=== PATIENT | female | born 1955 | race Caucasian/White ===

== ENCOUNTER → 2017-07-23 11:29 | Outpatient (CLI) | payer OTHER, SELFPAY ==
[2017-07-23 14:20] LABS: Absolute Lymphocyte Count 1.68 X10^3/ul (0.83-4.51); Absolute Neutrophil Count 3.4 X10^3/uL (2.0-7.7); Basophil# 0.02 X10^3/uL; Basophil% 0.4 % (0-1); Eosinophil# 0.05 X10^3/uL; Eosinophils% 0.9 % (0-5); Erythrocyte Sedimentation Rate 29 mm/hr (0-30); Hematocrit 38.9 % (37-47); Hemoglobin 13.4 g/dl (12.0-15.0); Lymphocyte # 1.68 X10^3/ul (4.0); Lymphocyte % 30.2 % (19-41); Mean Corp Hgb Conc 34.4 g/gl (32-36); Mean Platelet Vol. 10.9 fl (6.2-12.0); Monocyte# 0.38 X10^3/uL; Monocyte% 6.8 % (0-10); Neutrophil # 3.43 X10^3/uL (2.7-7.7); Neutrophil % 61.5 % (47-70); Platelet Count 238 K/mm3 (150-450); RBC Distribution Width CV 13.2 % (11.6-14.6); RBC Distribution Width SD 40.8 fl (35.1-43.9); Red Blood Count 4.47 M/mm3 (4.2-5.4); White Blood Count 5.6 K/mm3 (4.4-11.0)
[2017-07-23 14:22] LABS: POSITIVE COUNT NO; POSITIVE DIFFERENTIAL NO; POSITIVE MORPHOLOGY NO
[2017-07-23 14:45] LABS: AST(SGOT) 26 U/L (15-37); Alanine Aminotransfer ALT/SGPT 31 U/L (13-56); Albumin, Serum 3.8 g/dL (3.2-5.0); Alkaline Phosphatase 108 U/L (45-117); Anion Gap 11 (5-15); BUN 14 mg/dL (7-18); CRP 8.77 mg/L (0.0-3.0); Calcium,Total 8.9 mg/dL (8.5-10.1); Chloride 109 mmol/L (98-107); Creatinine, Serum 0.87 mg/dL (0.55-1.02); EST Glomerular Filtration Rate 70 mL/min (>60); Est Glom Filt Rate - Afr Amer 85 mL/min (>60); Glucose 108 mg/dL (74-106); Magnesium 1.9 mg/dL (1.6-2.6); Potassium 3.7 mmol/L (3.5-5.1); Protein, Total 7.8 g/dL (6.4-8.2); Sodium Level 143 mmol/L (136-145); Thyroid Stim Hormone (TSH) 1.42 uIU/mL (0.358-3.74)
== END ==
PROVIDERS: Family Provider Family Medicine; PCP Family Medicine; Visit Provider Family Medicine
DX: G43.809 Other migraine, not intractable, without status migrainosus (principal); R00.0 Tachycardia, unspecified
CPT/HCPCS: 36415; 80053; 83735; 84443; 85025; 85652; 86140

== ENCOUNTER 2018-06-23 08:18 | Observation (INO) | payer OTHER, SELFPAY ==
[2018-06-23] VITALS (10 sets, daily range): BP systolic 133–152; BP diastolic 80–90; PULSE 82–112; RESP 14–20; TEMP 36.6–36.7; O2SAT 95–100; BMI 38.0; BMI 38.1; BMI 38.2
--- NOTE | 2018-06-23 08:28 | EKG12_ITS ---
Test Reason : CP ADMISSION Blood Pressure : / mmHG Vent. Rate : 086 BPM Atrial Rate : 086 BPM P-R Int : 154 ms QRS Dur : 086 ms QT Int : 352 ms P-R-T Axes : 038 023 016 degrees QTc Int : 421 ms Normal sinus rhythm Normal ECG Confirmed by AXEL KHAN, DEANA ([id number]), field map editor JEF DOE ([id number]) on 06/24/2018 1:26:51 PM Referred By: MIGUEL Confirmed By:DEANA REYNA MD
[2018-06-23] MEDS: Aspirin 81 MG TAB.CHEW 324 MG PO (08:32)
--- NOTE | 2018-06-23 08:33 | ED.DCSUM_ITS ---
- ER Visit Summary Date of Service: 06/23/18 Chief Complaint: Chest pain History of Present Illness: The patient is a 62 F with chest pain that started yesterday. She has episodes that last a few seconds and are sharp and stabbing she does have some radiation to her left arm. She also has had some tenderness in her left groin region for about 3 days currently she has no pain. She has no dysuria. She has no flank pain or back pain. This chest pain is not associated with any upper back pain or tearing sensation. She has no PE risk factors. Pain is nonpleuritic. She has no leg pain or calf swelling. Physical Examination: Not appear in acute distress. Moist mucous membranes, no obvious facial deformity No C-spine tenderness supple neck. Regular rate and rhythm without any obvious murmurs Clear lungs bilaterally speaking in full sentences without any obvious respiratory distress Abdomen soft and nontender no guarding or rebound. Palpating in her inguinal region or her pain was but currently she has no pain. It was not in her abdomen or pelvic region. Moves all extremities without any difficulty or pain. Skin does not show any obvious rashes or lesions, no trauma. Alert oriented ?3 with no gross focal deficit Emergency Department Course and Treatment: She remained asymptomatic in the emergency department. Her heart score is a 4. Because of this she will need to be admitted for cardiac workup. She has no PE risk factors. She appears well otherwise. Disposition: Admit in stable condition for observation Impression: Chest pain This note was generated with [employer] dictation software. It may contain incorrect words, spelling, and punctuation that were not noted in review of the chart prior to signing ED Disposition - Plan for ED Patient: Referrals: Mason Lagunas MD [Primary Care Provider] -
--- NOTE | 2018-06-23 08:41 | RAD_ITS ---
STUDY: X-RAY CHEST REASON FOR EXAM: Female, 62 years old. Chest pain. TECHNIQUE: Single AP portable view of the chest. COMPARISON: Comparison is made with prior study dated June 20, 2013. FINDINGS: EKG electrodes are seen. Soft tissue density in the medial aspect of the right lung apex. This may represent vascular ectasia. There is no demonstrated pleural abnormality. Normal size heart. Normal mediastinum and levon. Normal visualized pulmonary arteries. There is atherosclerotic tortuosity of the aortic arch and descending thoracic aorta. There are diffuse degenerative changes of the visualized thoracic spine. Normal visualized ribs, clavicles, and shoulders. There is no demonstrated abnormality of the visualized soft tissue structures of the upper abdomen. RAD/Chest 1 View (Portable) IMPRESSION: No acute abnormality is seen. Electronically Signed: Alex Barber, at 9:03 EDT , Service support ,
[2018-06-23 08:49] LABS: Absolute Lymphocyte Count 1.16 X10^3/ul (0.83-4.51); Absolute Neutrophil Count 6.8 X10^3/uL (2.0-7.7); Basophil# 0.01 X10^3/uL; Basophil% 0.1 % (0-1); Eosinophil# 0.04 X10^3/uL; Eosinophils% 0.5 % (0-5); Hematocrit 40.8 % (37-47); Hemoglobin 13.8 g/dl (12.0-15.0); Lymphocyte # 1.16 X10^3/ul (4.0); Lymphocyte % 13.8 % (19-41); Mean Corp Hgb Conc 33.8 g/gl (32-36); Mean Corpuscular Hgb 29.4 pg (27.0-32.0); Mean Corpuscular Volume 86.8 fL (81-99); Mean Platelet Vol. 9.3 fl (6.2-12.0); Monocyte# 0.43 X10^3/uL; Monocyte% 5.1 % (0-10); Neutrophil # 6.77 X10^3/uL (2.7-7.7); Neutrophil % 80.4 % (47-70); Platelet Count 236 K/mm3 (150-450); RBC Distribution Width CV 12.8 % (11.6-14.6); RBC Distribution Width SD 41.2 fl (35.1-43.9); White Blood Count 8.4 K/mm3 (4.4-11.0)
[2018-06-23 08:50] LABS: POSITIVE COUNT NO; POSITIVE DIFFERENTIAL NO; POSITIVE MORPHOLOGY NO
[2018-06-23 09:06] LABS: Anion Gap 7 (5-15); BUN 19 mg/dL (7-18); BUN/Creat Ratio 17.6 RATIO (10-20); Calcium,Total 9.4 mg/dL (8.5-10.1); Chloride 110 mmol/L (98-107); Creatinine, Serum 1.08 mg/dL (0.55-1.02); EST Glomerular Filtration Rate 55 mL/min (>60); Est Glom Filt Rate - Afr Amer 66 mL/min (>60); Estimated Creatinine Clearance 41.28 ml/min; Glucose 164 mg/dL (74-106); Potassium 3.8 mmol/L (3.5-5.1); Sodium Level 142 mmol/L (136-145)
[2018-06-23 09:15] LABS: Bacteria 0 SEEN /hpf (None Seen); Mucous, Urine 0 SEEN /hpf (<or=2+); Red Blood Cells-Urine 0 SEEN /hpf (0-5); White Blood Cells 0 SEEN /hpf (0-5)
[2018-06-23 09:17] LABS: Color, Urine Yellow (Yellow); Glucose, Dipstick Normal (Normal); Ketone-Dipstick Negative (Negative); Leukocyte Esterase-Dipstick Negative /ul (Negative); Nitrite-Dipstick Negative (Negative); Occult Blood-Urine Negative /ul (Negative); Protein-Dipstick Negative (Negative); Urine Bilirubin Dipstick Negative (Negative); Urine Clarity Sl. Cloudy (Clear); Urine Urobilinogen Normal (Normal)
[2018-06-23 09:30] LABS: Squamous Epithelial Cells - UA 0-5 SEEN /hpf (5-10)
--- NOTE | 2018-06-23 10:29 | EKG12_ITS ---
Test Reason : CP Blood Pressure : / mmHG Vent. Rate : 101 BPM Atrial Rate : 101 BPM P-R Int : 144 ms QRS Dur : 086 ms QT Int : 344 ms P-R-T Axes : 039 009 037 degrees QTc Int : 446 ms Sinus tachycardia Otherwise normal ECG Confirmed by NEHAL KHAN, YANA ([id number]), international editorial producer GILBERT WOOD ([id number]) on 06/29/2018 4:11:52 PM Referred By: ALMA Confirmed By:YANA CALVERT MD
--- NOTE | 2018-06-23 11:18 | PCM.HP.STD ---
History of Present Illness Date of Admission: 06/23/18 Chief Complaint: chest pain The patient is a 62 year old F with past medical history of hypertension hyperlipidemia. She was admitted through the ED on 06/23/2018 with a complaint of chest pain of one days duration. She said pain was left-sided, pressure-like, and assisted with tingling in her left fingers. She states it started when she was having a breast exam done. It was episodic and she had no assisted lightheadedness or dizziness. He also denied any shortness of breath or palpitations. She is never had chest pain like this in the past. In the ED, initial troponin was negative and EKG showed sinus tachycardia but no acute ST changes. She has been admitted to be managed for chest pain to rule out ACS. [] Past Medical History Past Medical History (Chronic Problems): Chronic Problems Obese (Chronic) HTN (hypertension) (Chronic) Secondhand exposure to smoking (Chronic) Allergies meloxicam Adverse Reaction (Verified 06/23/18 08:19) Diarrhea Home Medications: Ambulatory Orders Medication Instructions Recorded Atorvastatin Calcium [Lipitor] 20 mg PO QHS #30 tablet 06/21/13 Butterbur Root Extract [Petadolex] 50 mg PO BID 06/23/18 Cholecalciferol (VIT D3) [Vitamin 3,000 unit PO DAILY 06/23/18 D] Metoprolol Succinate 50 mg PO DAILY 06/23/18 Spironolactone 50 mg PO DINNER 06/23/18 Topiramate [Topamax] 25 mg PO BID 06/23/18 Surgical History: noncontributory Psychiatric History: No pertinent psych hx AUTHOR AGENT 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 Denies: Palpitations Respiratory: Denies: Cough, Shortness of Breath, Shortness of breath at rest, Shortness of breath upon exertion, Sputum production Gastrointestinal: Denies: Abdominal Pain, Nausea, Vomiting Genitourinary: Denies: Dysuria Musculoskeletal: Denies: Joint Pain, Joint Tenderness Skin: Denies: Rash, Wounds Neurological: Denies: Numbness, Tingling, Focal weakness Psychiatric: Denies: Anxiety, Depression, Homicidal Ideations, Suicidal Ideations Hematologic/ Lymphatic: Denies: Easy Bruising, Easy Bleeding VTE Information - Inpt Only VTE Present on Admission: No VTE Pharm Prophylaxis ordered?: Yes - Physical Exam General: Alert, Oriented x3, Cooperative, No apparent distress HEENT: Atraumatic, PERRLA, EOMI, Normocephalic Oral: Moist Mucosa Neck: Supple, No JVD, Negative Carotid Bruits Lungs: Clear to auscultation, Normal air movement Cardiovascular: Regular rate, Regular Rhythm, Normal S1, Normal S2, No murmurs Abdomen: Bowel Sounds Present, Soft, Non Tender, Non-Distended, No Hepato-splenomegaly Extremities: No clubbing, No cyanosis, No edema, Capillary Refill Less than 3 Seconds Skin: No rashes, No breakdown Musculoskeletal: No Tenderness to Palpation of Joints or Extremities Lymphatic: No Cervical, Supraclavicular, or Inguinal Adenopathy Neurological: Cranial nerves II-XII grossly intact, Neuro grossly intact, Motor Exam 5/5 strength throughout Psych/Mental Status: Normal Affect, Appropriate, Alert and oriented to time, place, person, mood and affect Vital Signs Temp Pulse Resp BP Pulse Ox 98.0 F 93 14 145/84 H 97 06/23/18 10:15 06/23/18 10:31 06/23/18 10:15 06/23/18 10:15 06/23/18 10:15 Oxygen Flow Rate (L/min) 1 Oxygen Delivery Method Room Air Weight: 201 lb 15.095 oz Body Mass Index (BMI) 38.1 Finger Stick Blood Glucose 114 Laboratory Tests Past 24 Hrs 06/23/18 06/23/18 06/23/18 08:40 08:40 09:09 WBC 8.4 RBC 4.70 Hgb 13.8 Hct 40.8 MCV 86.8 MCH 29.4 MCHC 33.8 RDW 12.8 RDW Differential 41.2 Plt Count 236 MPV 9.3 Immature Gran % (Auto) 0.100 Neut % (Auto) 80.4 H Lymph % (Auto) 13.8 L [place] % (Auto) 5.1 Eos % (Auto) 0.5 Baso % (Auto) 0.1 Absolute Neuts (auto) 6.8 Absolute Lymphs (auto) 1.16 Total Counted Not Reportable Sodium 142 Potassium 3.8 Chloride 110 H Carbon Dioxide 25.0 Anion Gap 7 BUN 19 H Creatinine 1.08 H Estim Creat Clear Calc 41.28 Est GFR (MDRD) Af Amer 66 Est GFR (MDRD) Non-Af 55 L BUN/Creatinine Ratio 17.6 Glucose 164 H Calcium 9.4 Troponin I < 0.015 Urine Color Yellow Urine Clarity Sl. Cloudy Urine pH 7.0 Ur Specific [place] 1.010 Urine Protein Negative Urine Glucose (UA) Normal Urine Ketones Negative Urine Occult Blood Negative Urine Nitrite Negative Urine Bilirubin Negative Urine Urobilinogen Normal Ur Leukocyte Esterase Negative Urine RBC 0 SEEN Urine WBC 0 SEEN Ur Squamous Epith Cells 0-5 SEEN Urine Bacteria 0 SEEN Urine Mucus 0 SEEN Diagnostic Data Chest X-Ray 06/23/18 08:41 IMPRESSION: No acute abnormality is seen. Electronically Signed: Alex Barber, at 9:03 EDT , Service support , Assessment/Plan 62 y/o admitted with a complaint of chest pain 1. Chest pain to r/o ACS initial troponin was negative; EKG showed no acute ST change admit to PCU with telemetry cycle troponins give SL nitroglycerin prn; PO aspirin 81mg daily check lipid panel for stress test tomorrow if troponins are negative. 2. Hyperlipidemia: on statin 3. Hypertension: controlled. On metoprolol 50mg daily and spironolactone 50mg daily. DVT prophylaxis: lovenox Code Visit OBSV E&M: 10520 Initial observation care L3
--- NOTE | 2018-06-23 11:26 | HP.PCM_ITS ---
History of Present Illness Date of Admission: 06/23/18 Chief Complaint: chest pain The patient is a 62 year old F with past medical history of hypertension hyperlipidemia. She was admitted through the ED on 06/23/2018 with a complaint of chest pain of one days duration. She said pain was left-sided, pressure-like, and assisted with tingling in her left fingers. She states it started when she was having a breast exam done. It was episodic and she had no assisted lightheadedness or dizziness. He also denied any shortness of breath or palpitations. She is never had chest pain like this in the past. In the ED, initial troponin was negative and EKG showed sinus tachycardia but no acute ST changes. She has been admitted to be managed for chest pain to rule out ACS. [] Past Medical History Past Medical History (Chronic Problems): Chronic Problems Obese (Chronic) HTN (hypertension) (Chronic) Secondhand exposure to smoking (Chronic) Allergies meloxicam Adverse Reaction (Verified 06/23/18 08:19) Diarrhea Home Medications: Ambulatory Orders Medication Instructions Recorded Atorvastatin Calcium [Lipitor] 20 mg PO QHS #30 tablet 06/21/13 Butterbur Root Extract [Petadolex] 50 mg PO BID 06/23/18 Cholecalciferol (VIT D3) [Vitamin 3,000 unit PO DAILY 06/23/18 D] Metoprolol Succinate 50 mg PO DAILY 06/23/18 Spironolactone 50 mg PO DINNER 06/23/18 Topiramate [Topamax] 25 mg PO BID 06/23/18 Surgical History: noncontributory Psychiatric History: No pertinent psych hx PRUNER History: No pertinent PRUNER history Lives: Spouse/ Significant Other Smoking Status: Never smoker Alcohol: None Drugs: None - *Family History Paternal History Items: Heart Disease - father of a heart attack in his 40s, - Sibling History Items: - - brother has sarcoidosis Review of Systems Constitutional: Denies: Chills, Fever, Malaise, Weakness, Weight Change Eyes: Denies: Blurred vision HEENT: Denies: Head Aches, Sinus Congestion, Sinus Drainage Cardiovascular: Reports: Chest Pain. Denies: Palpitations Respiratory: Denies: Cough, Shortness of Breath, Shortness of breath at rest, Shortness of breath upon exertion, Sputum production Gastrointestinal: Denies: Abdominal Pain, Nausea, Vomiting Genitourinary: Denies: Dysuria Musculoskeletal: Denies: Joint Pain, Joint Tenderness Skin: Denies: Rash, Wounds Neurological: Denies: Numbness, Tingling, Focal weakness Psychiatric: Denies: Anxiety, Depression, Homicidal Ideations, Suicidal Ideations Hematologic/ Lymphatic: Denies: Easy Bruising, Easy Bleeding VTE Information - Inpt Only VTE Present on Admission: No VTE Pharm Prophylaxis ordered?: Yes - Physical Exam General: Alert, Oriented x3, Cooperative, No apparent distress HEENT: Atraumatic, PERRLA, EOMI, Normocephalic Oral: Moist Mucosa Neck: Supple, No JVD, Negative Carotid Bruits Lungs: Clear to auscultation, Normal air movement Cardiovascular: Regular rate, Regular Rhythm, Normal S1, Normal S2, No murmurs Abdomen: Bowel Sounds Present, Soft, Non Tender, Non-Distended, No Hepato- splenomegaly Extremities: No clubbing, No cyanosis, No edema, Capillary Refill Less than 3 Seconds Skin: No rashes, No breakdown Musculoskeletal: No Tenderness to Palpation of Joints or Extremities Lymphatic: No Cervical, Supraclavicular, or Inguinal Adenopathy Neurological: Cranial nerves II-XII grossly intact, Neuro grossly intact, Motor Exam 5/5 strength throughout Psych/Mental Status: Normal Affect, Appropriate, Alert and oriented to time, place, person, mood and affect Vital Signs Temp Pulse Resp BP Pulse Ox 98.0 F 93 14 145/84 H 97 06/23/18 10:15 06/23/18 10:31 06/23/18 10:15 06/23/18 10:15 06/23/18 10:15 Oxygen Flow Rate (L/min) 1 Oxygen Delivery Method Room Air Weight: 201 lb 15.095 oz Body Mass Index (BMI) 38.1 Finger Stick Blood Glucose 114 Laboratory Tests Past 24 Hrs 06/23/18 06/23/18 06/23/18 08:40 08:40 09:09 WBC 8.4 RBC 4.70 Hgb 13.8 Hct 40.8 MCV 86.8 MCH 29.4 MCHC 33.8 RDW 12.8 RDW Differential 41.2 Plt Count 236 MPV 9.3 Immature Gran % (Auto) 0.100 Neut % (Auto) 80.4 H Lymph % (Auto) 13.8 L [place] % (Auto) 5.1 Eos % (Auto) 0.5 Baso % (Auto) 0.1 Absolute Neuts (auto) 6.8 Absolute Lymphs (auto) 1.16 Total Counted Not Reportable Sodium 142 Potassium 3.8 Chloride 110 H Carbon Dioxide 25.0 Anion Gap 7 BUN 19 H Creatinine 1.08 H Estim Creat Clear Calc 41.28 Est GFR (MDRD) Af Amer 66 Est GFR (MDRD) Non-Af 55 L BUN/Creatinine Ratio 17.6 Glucose 164 H Calcium 9.4 Troponin I < 0.015 Urine Color Yellow Urine Clarity Sl. Cloudy Urine pH 7.0 Ur Specific [place] 1.010 Urine Protein Negative Urine Glucose (UA) Normal Urine Ketones Negative Urine Occult Blood Negative Urine Nitrite Negative Urine Bilirubin Negative Urine Urobilinogen Normal Ur Leukocyte Esterase Negative Urine RBC 0 SEEN Urine WBC 0 SEEN Ur Squamous Epith Cells 0-5 SEEN Urine Bacteria 0 SEEN Urine Mucus 0 SEEN Diagnostic Data Chest X-Ray 06/23/18 08:41 IMPRESSION: No acute abnormality is seen. Electronically Signed: Alex Barber, at 9:03 EDT , Service support , Assessment/Plan 62 y/o admitted with a complaint of chest pain 1. Chest pain to r/o ACS * initial troponin was negative; EKG showed no acute ST change * admit to PCU with telemetry * cycle troponins * give SL nitroglycerin prn; PO aspirin 81mg daily * check lipid panel * for stress test tomorrow if troponins are negative. * 2. Hyperlipidemia: on statin 3. Hypertension: controlled. On metoprolol 50mg daily and spironolactone 50mg daily. DVT prophylaxis: lovenox Code Visit OBSV E&M: 98077 Initial observation care L3
[2018-06-23 11:31] LABS: Bedside Glucose 95 mg/dL (70-110)
[2018-06-23] MEDS: Topiramate 25 MG Tablet PO ×2 (11:54→22:35)
[2018-06-23 16:41] LABS: Bedside Glucose 91 mg/dL (70-110)
[2018-06-23] MEDS: Spironolactone 50 MG Tablet PO (17:07)
[2018-06-23] MEDS: Atorvastatin Calcium 20 MG Tablet PO (22:35)
[2018-06-24 00:38] VITALS: BP 117/76; PULSE 84; RESP 18; TEMP 36.4; O2SAT 93
[2018-06-24 00:51] LABS: Bedside Glucose 101 mg/dL (70-110)
[2018-06-24 02:57] VITALS: PULSE 74
[2018-06-24 05:37] LABS: International Normalized Ratio 1.1; Prothrombin Time (Protime)PT. 13.9 SECONDS (11.7-14.9)
[2018-06-24 05:38] LABS: Absolute Lymphocyte Count 2.42 X10^3/ul (0.83-4.51); Absolute Neutrophil Count 5.9 X10^3/uL (2.0-7.7); Basophil# 0.02 X10^3/uL; Basophil% 0.2 % (0-1); Eosinophil# 0.11 X10^3/uL; Eosinophils% 1.2 % (0-5); Hematocrit 39.1 % (37-47); Lymphocyte # 2.42 X10^3/ul (4.0); Lymphocyte % 26.8 % (19-41); Mean Corp Hgb Conc 33.2 g/gl (32-36); Mean Corpuscular Volume 87.3 fL (81-99); Mean Platelet Vol. 9.7 fl (6.2-12.0); Monocyte# 0.61 X10^3/uL; Monocyte% 6.7 % (0-10); Neutrophil # 5.88 X10^3/uL (2.7-7.7); Neutrophil % 65.1 % (47-70); Partial Thromboplast Time 29.2 Seconds (24.1-36.2); Platelet Count 249 K/mm3 (150-450); RBC Distribution Width CV 12.9 % (11.6-14.6); RBC Distribution Width SD 40.4 fl (35.1-43.9); Red Blood Count 4.48 M/mm3 (4.2-5.4)
[2018-06-24 05:49] LABS: POSITIVE COUNT NO; POSITIVE DIFFERENTIAL NO; POSITIVE MORPHOLOGY NO
[2018-06-24 05:50] VITALS: BP 140/79; PULSE 84; RESP 18; TEMP 36.7; O2SAT 95
[2018-06-24 05:50] LABS: Anion Gap 8 (5-15); BUN 15 mg/dL (7-18); BUN/Creat Ratio 16.1 RATIO (10-20); Calcium,Total 8.9 mg/dL (8.5-10.1); Chloride 111 mmol/L (98-107); Creatinine, Serum 0.93 mg/dL (0.55-1.02); EST Glomerular Filtration Rate 65 mL/min (>60); Est Glom Filt Rate - Afr Amer 79 mL/min (>60); Estimated Creatinine Clearance 47.94 ml/min; Glucose 103 mg/dL (74-106); Potassium 4.1 mmol/L (3.5-5.1); Sodium Level 142 mmol/L (136-145)
[2018-06-24] MEDS: Aspirin 81 MG TAB.CHEW PO (05:55)
--- NOTE | 2018-06-24 05:55 | EKG12_ITS ---
Test Reason : AM Blood Pressure : / mmHG Vent. Rate : 083 BPM Atrial Rate : 083 BPM P-R Int : 148 ms QRS Dur : 084 ms QT Int : 384 ms P-R-T Axes : 046 013 030 degrees QTc Int : 451 ms Normal sinus rhythm Normal ECG When compared with ECG of 23-JUN-2018 10:43, MANUAL COMPARISON REQUIRED, DATA IS UNCONFIRMED Confirmed by NEHAL KHAN, YANA ([id number]), editor farm journal GILBERT WOOD ([id number] on 06/29/2018 5:17:32 PM Referred By: MEHDI Confirmed By:YANA CALVERT MD
[2018-06-24 06:01] LABS: Bedside Glucose 101 mg/dL (70-110)
--- NOTE | 2018-06-24 08:33 | STRESSREP_ITS ---
Stress Test Report Exercise myocardial perfusion stress test. 62-year-old lady with a history of chest pain. Stress protocol: Resting EKG demonstrates normal sinus rhythm with a rate of 84 bpm normal intervals are noted resting blood pressures 144/88 mmHg. The patient exercised according to the regular [place] protocol for total duration of 6 minutes the m aximum heart rate attained was 148 bpm which was 93% of maximum predicted heart rate the maximum workload was 7 metabolic equivalents. At rest there were no ST or T wave changes noted suggest ischemia at peak exercise upsloping ST changes only were noted with no meet the criteria for ischemia. The resting blood pressure 148/88 with a peak blood pressure 160/80 mmHg. Myocardial perfusion protocol. 14.6 mCi of technetium 99m sestamibi was injected at rest. The patient exercised according to regular [place] protocol for total duration of 6 minutes at peak exercise 43.9 mCi of technetium 99m sestamibi was injected stress images were obtained stress and rest images were reconstructed in comparing the short axis vertical long horizontal long axis. Gated images were also obtained for next Perfusion SPECT analysis: Review of the stress images demonstrate normal uptake of tracer noted in all areas of the myocardium the resting images similarly demonstrate normal uptake of tracer noted in all areas of the myocardium. No areas of reversibility are noted suggest ischemia. Gated SPECT analysis: The gated ejection fraction is noted to be 78%. Conclusion: Normal exercise myocardial perfusion stress test at a moderate workload. Preserved ejection fraction.
[2018-06-24 08:55] VITALS: BP 126/79; PULSE 94; RESP 16; TEMP 36.8; O2SAT 96
[2018-06-24 09:02] VITALS: PULSE 94
[2018-06-24] MEDS: Metoprolol(XL)Succ 50 MG Tablet PO (09:02)
--- NOTE | 2018-06-24 10:47 | DCINST_ITS ---
You will use the following diet at home:: Cardiac Your food should be the consistency of: Regular Your liquids should be the consistency of: Regular/Thin Discharge Activity: Return to Normal Activity Weight Bearing Status: Weight bearing as tolerated Call your doctor if you observe: Shortness of breath, Chest pain Instructions: What Is Angina?, Fast-Acting Nitroglycerin Allergies/Adverse Reactions: Allergies meloxicam Adverse Reaction (Verified 06/23/18 08:19) Diarrhea Medications to take at Discharge Atorvastatin Calcium [Lipitor] 20 mg PO QHS #30 tablet 06/21/13 Butterbur Root Extract [Petadolex] 50 mg PO BID 06/23/18 Cholecalciferol (VIT D3) [Vitamin D3] 3,000 unit PO DAILY 06/23/18 Metoprolol Succinate 50 mg PO DAILY 06/23/18 Spironolactone 50 mg PO DINNER 06/23/18 Topiramate [Topamax] 25 mg PO BID 06/23/18 Aspirin [Aspirin, Baby] 81 mg PO DAILY@0800 #30 tab.chew 06/24/18 Nitroglycerin [Nitrostat] 0.4 mg SUBLINGUAL Q5M PRN #30 tablet 06/24/18 The following prescriptions were given: Aspirin [Aspirin, Baby] 81 mg PO DAILY@0800 #30 tab.chew Nitroglycerin [Nitrostat] 0.4 mg SUBLINGUAL Q5M PRN #30 tablet PRN Reason: Cardiac/Chest Pain Primary Care Physician: Mason Lagunas MD [Primary Care Provider] - Please follow up with your Primary Care Physician in: one week Test Results: Test results from this visit will be discussed in further detail at your follow- up appointment, if applicable. Proposed Discharge Date: 06/24/18
--- NOTE | 2018-06-24 10:47 | PCM.DC.SUM ---
Discharge Date and Diagnosis Date of Admission: 06/23/18 Date of Discharge: 06/24/18 - Primary Discharge Diagnosis chest pain - Secondary Discharge Diagnosis Chronic Problems Obese (Chronic) HTN (hypertension) (Chronic) Secondhand exposure to smoking (Chronic) Hospital Course and Treatment Imaging Results: 06/24/18 05:55 Nuclear Stress Test - Treadmil [NM] AM (NON MEDS) Diagnostic Data Chest X-Ray 06/23/18 08:41 IMPRESSION: No acute abnormality is seen. Electronically Signed: Alex Barber, at 9:03 EDT , Service support , Operations: None Procedures: Cardiac catheterization Summary of Care Provided: The patient is a 62 year old F with past medical history of hypertension hyperlipidemia. She was admitted through the ED on 06/23/2018 with a complaint of chest pain of one days duration. She said pain was left-sided, pressure-like, and assisted with tingling in her left fingers. She states it started when she was having a breast exam done. It was episodic and she had no assisted lightheadedness or dizziness. He also denied any shortness of breath or palpitations. She is never had chest pain like this in the past. In the ED, initial troponin was negative and EKG showed sinus tachycardia but no acute ST changes. She was admitted to be managed for chest pain to rule out ACS. Troponins x3 were negative. She had a stress test on 06/24/2018 which was negative. She remained stable and was discharged home on 06/24/2018. She was given a prescription for p.o. aspirin 81 mg daily and sublingual nitroglycerin as needed. She is follow-up with her PCP in 1 week. Patient seen and examined prior to discharge. She had no complaints and felt well. Chest pain hadnt recurred since admission. Review of systems otherwise negative. Labs and vitals reviewed. Home medications reviewed and reconciled. o/e: Vital Signs Height 5 ft 1 in Weight: 201 lb 15.095 oz Weight in Pounds 201.9 lbs Pulse Ox 96 Temperature 98.3 F Pulse Rate 94 Respiratory Rate 16 Blood Pressure 126/79 Blood Pressure Position Semi-Fowlers General: Alert, Oriented x3, Cooperative, No apparent distress HEENT: Atraumatic, PERRLA, EOMI, Normocephalic Oral: Moist Mucosa Neck: Supple, No JVD, Negative Carotid Bruits Lungs: Clear to auscultation, Normal air movement Cardiovascular: Regular rate, Regular Rhythm, Normal S1, Normal S2, No murmurs Abdomen: Bowel Sounds Present, Soft, Non Tender, Non-Distended, No Hepato-splenomegaly Extremities: No clubbing, No cyanosis, No edema, Capillary Refill Less than 3 Seconds Skin: No rashes, No breakdown Musculoskeletal: No Tenderness to Palpation of Joints or Extremities Lymphatic: No Cervical, Supraclavicular, or Inguinal Adenopathy Neurological: Cranial nerves II-XII grossly intact, Neuro grossly intact, Motor Exam 5/5 strength throughout Psych/Mental Status: Normal Affect, Appropriate, Alert and oriented to time, place, person, mood and affect Plan is to discharge patient home with PO aspirin and SL nitroglycerin. - Physical Exam Vital Signs Temp Pulse Resp BP Pulse Ox 98.3 F 94 16 126/79 H 96 06/24/18 08:55 06/24/18 09:02 06/24/18 08:55 06/24/18 08:55 06/24/18 08:55 Oxygen Flow Rate (L/min) 1 Oxygen Delivery Method Room Air Weight: 201 lb 15.095 oz Body Mass Index (BMI) 38.1 Finger Stick Blood Glucose 114 Intake and Output for Last 24 Hours 06/22/18 06/23/18 06/24/18 23:59 23:59 23:59 Intake Total 1765 / 1765 120 / 120 Balance 1765 / 1765 120 / 120 Laboratory Tests Past 24 Hrs 06/23/18 06/23/18 06/24/18 11:55 14:40 05:18 WBC 9.0 RBC 4.48 Hgb 13.0 Hct 39.1 MCV 87.3 MCH 29.0 MCHC 33.2 RDW 12.9 RDW Differential 40.4 Plt Count 249 MPV 9.7 Immature Gran % (Auto) 0.000 Neut % (Auto) 65.1 Lymph % (Auto) 26.8 [place] % (Auto) 6.7 Eos % (Auto) 1.2 Baso % (Auto) 0.2 Absolute Neuts (auto) 5.9 Absolute Lymphs (auto) 2.42 Total Counted Not Reportable PT INR APTT Sodium Potassium Chloride Carbon Dioxide Anion Gap BUN Creatinine Estim Creat Clear Calc Est GFR (MDRD) Af Amer Est GFR (MDRD) Non-Af BUN/Creatinine Ratio Glucose Calcium Troponin I < 0.015 < 0.015 06/24/18 06/24/18 05:18 05:18 WBC RBC Hgb Hct MCV MCH MCHC RDW RDW Differential Plt Count MPV Immature Gran % (Auto) Neut % (Auto) Lymph % (Auto) [place] % (Auto) Eos % (Auto) Baso % (Auto) Absolute Neuts (auto) Absolute Lymphs (auto) Total Counted PT 13.9 INR 1.1 APTT 29.2 Sodium 142 Potassium 4.1 Chloride 111 H Carbon Dioxide 23.0 Anion Gap 8 BUN 15 Creatinine 0.93 Estim Creat Clear Calc 47.94 Est GFR (MDRD) Af Amer 79 Est GFR (MDRD) Non-Af 65 BUN/Creatinine Ratio 16.1 Glucose 103 Calcium 8.9 Troponin I POC Glucose 06/24/18 06/24/18 06/23/18 05:52 00:40 16:25 POC Glucose 101 101 91 06/23/18 11:26 POC Glucose 95 Discharge Diet: Low fat/ Low Cholesterol Discharge Activity: Return to Normal Activity Weight Bearing Status: Weight bearing as tolerated Call your doctor if you observe: Shortness of breath, Chest pain Home Medications: Medications to take at Discharge Atorvastatin Calcium [Lipitor] 20 mg PO QHS #30 tablet 06/21/13 Butterbur Root Extract [Petadolex] 50 mg PO BID 06/23/18 Cholecalciferol (VIT D3) [Vitamin D3] 3,000 unit PO DAILY 06/23/18 Metoprolol Succinate 50 mg PO DAILY 06/23/18 Spironolactone 50 mg PO DINNER 06/23/18 Topiramate [Topamax] 25 mg PO BID 06/23/18 Aspirin [Aspirin, Baby] 81 mg PO DAILY@0800 #30 tab.chew 06/24/18 Nitroglycerin [Nitrostat] 0.4 mg SUBLINGUAL Q5M PRN #30 tablet 06/24/18 Following Prescrptions Were Given to Patient: Aspirin [Aspirin, Baby] 81 mg PO DAILY@0800 #30 tab.chew Nitroglycerin [Nitrostat] 0.4 mg SUBLINGUAL Q5M PRN #30 tablet PRN Reason: Cardiac/Chest Pain Primary Care Physician: Mason Lagunas MD [Primary Care Provider] - Please follow up with your Primary Care Physician in: one week Patient Instructions: What Is Angina?, Fast-Acting Nitroglycerin Disposition: Home Minutes spent on discharge:: 35 Patient Condition:: Stable Medical Necessity - Tobacco Use Smoking Status: Never smoker Meaningful Use Info Meaningful Use Diagnoses (Choose all that apply): None applicable Code Visit Inpatient E&M: 26072 Disch Hosp
== END 2018-06-24 10:47 | disposition home or self-care (01) ==
LOC: ED 08:37 → PCU 10:01
PROVIDERS: Admitting Provider Student in an Organized Health Care Education/Training Program; Emergency Provider Emergency Medicine; Family Provider Family Medicine; PCP Family Medicine; Visit Provider Student in an Organized Health Care Education/Training Program
DX: R07.89 Other chest pain (principal); I10 Essential (primary) hypertension; E66.9 Obesity, unspecified; Z68.38 Body mass index [BMI] 38.0-38.9, adult; Z71.3 Dietary counseling and surveillance; E78.5 Hyperlipidemia, unspecified; Z79.899 Other long term (current) drug therapy
CPT/HCPCS: 36415; 71045; 78452; 80048; 81001; 82962; 84484; 85025; 85610; 85730; 93005; 93017; 99218; 99285; A9500; A4216; G0378

== ENCOUNTER → 2018-07-01 08:49 | Outpatient (CLI) | payer OTHER, SELFPAY ==
[2018-06-23 10:14] VITALS: BMI 38.1
--- NOTE | 2018-07-01 08:52 | US_ITS ---
STUDY: ULTRASOUND BREAST - LEFT REASON FOR EXAM: Female, 62 years old. Left breast pain. TECHNIQUE: Axial and longitudinal images of the LEFT breast were performed with a high resolution ultrasound transducer. COMPARISON: Comparison is made with prior mammogram done earlier in the day. FINDINGS: LEFT Breast: Mild degree of retroareolar ductal dilatation. US/Breast Limited Unilateral IMPRESSION: Mild retroareolar ductal dilatation. ASSESSMENT CATEGORY: BIRADS Category 2: Benign. A letter regarding these results will be sent to the patient by the facility within 30 days. Electronically Signed: Alex Barber, at 10:48 EDT , Service support ,
--- NOTE | 2018-07-01 09:12 | BI_ITS ---
MAMMOGRAPHY - BILATERAL DIAGNOSTIC REASON FOR EXAM: Female, 62 years old. Left retroareolar breast pain. PERTINENT HISTORY: Aunt with breast cancer. TECHNIQUE: Digital bilateral breast giovanni (3D mammographic acquisition) in the CC and MLO projections. 2-D mediolateral oblique (MLO) and craniocaudad (CC) views of both breasts were obtained. CAD: Full Field Digital Mammography with Computer Added Detection was performed. COMPARISON: Comparison is made with prior examination dated February 21, 2017 and February 21, 2016. FINDINGS: Breast Composition: The breasts are heterogeneously dense, which may obscure small masses. There are no dominant masses or suspicious calcifications. No other significant abnormalities are identified. There has been no significant change since the prior study. BI/DIAG MAMM W/CAD, BILAT IMPRESSION: Stable bilateral diagnostic mammogram. With the patient's history of left breast pain, correlation with ultrasound is recommended. ASSESSMENT CATEGORY: BIRADS Category 0: Incomplete. Need additional imaging evaluation. A letter regarding these results will be sent to the patient by the facility within 30 days. Approximately 10% of breast cancers are not detected by mammography. A normal mammogram should not delay biopsy of a clinically suspicious abnormality. Electronically Signed: Alex Barber, at 10:47 EDT , Service support ,
== END ==
PROVIDERS: Family Provider Family Medicine; PCP Family Medicine; Referring Provider Nurse Practitioner Women's Health; Visit Provider Nurse Practitioner Women's Health
DX: Z12.31 Encounter for screening mammogram for malignant neoplasm of breast (principal); N64.4 Mastodynia
CPT/HCPCS: 76642; 77066

== ENCOUNTER → 2018-08-03 14:30 | Outpatient (CLI) | payer OTHER, SELFPAY ==
[2018-08-03 14:20] VITALS: BMI 38.1
[2018-08-06 16:04] LABS: HPV APTIMA, High Risk Negative (Negative)
== END ==
PROVIDERS: Family Provider Family Medicine; PCP Family Medicine; Referring Provider Obstetrics & Gynecology; Visit Provider Obstetrics & Gynecology
DX: Z12.4 Encounter for screening for malignant neoplasm of cervix (principal)
CPT/HCPCS: 87624; 88175; G0145

== ENCOUNTER → 2018-10-08 10:05 | Outpatient (CLI) | payer OTHER, SELFPAY ==
[2018-08-03 14:20] VITALS: BMI 38.1
[2018-10-08 12:52] LABS: ALB/GLOB Ratio 1.2 RATIO (0.9-2.4); AST(SGOT) 18 U/L (15-37); Alanine Aminotransfer ALT/SGPT 22 U/L (13-56); Albumin, Serum 3.8 g/dL (3.2-5.0); Alkaline Phosphatase 115 U/L (45-117); Anion Gap 9 (5-15); BUN 19 mg/dL (7-18); BUN/Creat Ratio 22.2 RATIO (10-20); Calcium,Total 9.2 mg/dL (8.5-10.1); Chloride 109 mmol/L (98-107); Creatinine, Serum 0.86 mg/dL (0.55-1.02); EST Glomerular Filtration Rate 71 mL/min (>60); Est Glom Filt Rate - Afr Amer 86 mL/min (>60); Ferritin 70 ng/mL (8-252); Globulin 3.2 g/dL (2.2-4.2); Glucose 100 mg/dL (74-106); Magnesium 1.8 mg/dL (1.6-2.6); Potassium 4.3 mmol/L (3.5-5.1); Sodium Level 142 mmol/L (136-145); Thyroid Stim Hormone (TSH) 1.63 uIU/mL (0.358-3.74)
[2018-10-08 12:55] LABS: Absolute Lymphocyte Count 2.17 X10^3/uL (0.83-4.51); Absolute Neutrophil Count 3.9 X10^3/uL (2.0-7.7); Basophil# 0.03 X10^3/uL; Basophil% 0.5 % (0-1); Eosinophil# 0.12 X10^3/uL; Eosinophils% 1.8 % (0-5); Hematocrit 39.1 % (37-47); Hemoglobin 13.1 g/dL (12.0-15.0); Lymphocyte # 2.17 X10^3/ul (4.0); Lymphocyte % 32.9 % (19-41); Mean Corp Hgb Conc 33.5 g/dL (32-36); Mean Corpuscular Volume 89.7 fL (81-99); Mean Platelet Vol. 12.1 fl (6.2-12.0); Monocyte# 0.35 X10^3/uL; Monocyte% 5.3 % (0-10); NRBC Flagged by Analyzer 0 % (0-5); Neutrophil % 59.2 % (47-70); Platelet Count 179 K/mm3 (150-450); RBC Distribution Width CV 12.4 % (11.6-14.6); RBC Distribution Width SD 40.9 fl (35.1-43.9); Red Blood Count 4.36 M/mm3 (4.2-5.4); White Blood Count 6.6 K/mm3 (4.4-11.0)
== END ==
PROVIDERS: Family Provider Family Medicine; PCP Family Medicine; Referring Provider Family Medicine; Visit Provider Family Medicine
DX: G43.809 Other migraine, not intractable, without status migrainosus (principal); R25.2 Cramp and spasm
CPT/HCPCS: 36415; 80053; 82728; 83735; 84443; 85025

== ENCOUNTER → 2019-04-02 09:35 | Outpatient (CLI) | payer OTHER, SELFPAY ==
[2018-08-03 14:20] VITALS: BMI 38.1
[2019-04-02 12:33] LABS: Absolute Lymphocyte Count 1.58 X10^3/uL (0.83-4.51); Absolute Neutrophil Count 4.5 X10^3/uL (2.0-7.7); Basophil# 0.03 X10^3/uL; Basophil% 0.5 % (0-1); Eosinophil# 0.11 X10^3/uL; Eosinophils% 1.7 % (0-5); Hematocrit 40.1 % (37-47); Lymphocyte # 1.58 X10^3/ul (4.0); Mean Corp Hgb Conc 32.4 g/dL (32-36); Mean Corpuscular Hgb 29.1 pg (27.0-32.0); Mean Corpuscular Volume 89.9 fL (81-99); Mean Platelet Vol. 11.9 fl (6.2-12.0); Monocyte# 0.38 X10^3/uL; Monocyte% 5.8 % (0-10); NRBC Flagged by Analyzer 0 % (0-5); Neutrophil # 4.45 X10^3/uL (2.7-7.7); Neutrophil % 67.7 % (47-70); Platelet Count 201 K/mm3 (150-450); RBC Distribution Width CV 12.5 % (11.6-14.6); Red Blood Count 4.46 M/mm3 (4.2-5.4); White Blood Count 6.6 K/mm3 (4.4-11.0)
[2019-04-02 13:14] LABS: ALB/GLOB Ratio 0.9 RATIO (0.9-2.4); AST(SGOT) 20 U/L (15-37); Alanine Aminotransfer ALT/SGPT 28 U/L (13-56); Albumin, Serum 3.5 g/dL (3.2-5.0); Alkaline Phosphatase 115 U/L (45-117); Anion Gap 7 (5-15); BUN 21 mg/dL (7-18); BUN/Creat Ratio 20.8 RATIO (10-20); Calcium,Total 9.2 mg/dL (8.5-10.1); Chloride 111 mmol/L (98-107); Creatinine, Serum 1.01 mg/dL (0.55-1.02); EST Glomerular Filtration Rate 59 mL/min (>60); Est Glom Filt Rate - Afr Amer 71 mL/min (>60); Globulin 3.9 g/dL (2.2-4.2); Glucose 94 mg/dL (74-106); Protein, Total 7.4 g/dL (6.4-8.2); Sodium Level 142 mmol/L (136-145); Thyroid Stim Hormone (TSH) 2.18 uIU/mL (0.358-3.74)
[2019-04-02 13:48] LABS: Microalbumin,Random Urine 14.6 mg/L (NO RANGE EST.); Microalbumin:Creatinine Ratio 10.1 mg/g CRE (<30 mg/g CRE)
== END ==
PROVIDERS: PCP Family Medicine; Referring Provider Family Medicine; Visit Provider Family Medicine
DX: I10 Essential (primary) hypertension (principal); G43.809 Other migraine, not intractable, without status migrainosus
CPT/HCPCS: 36415; 80053; 82043; 82570; 84443; 85025

== ENCOUNTER → 2019-11-03 10:50 | Outpatient (CLI) | payer OTHER, SELFPAY ==
[2018-08-03 14:20] VITALS: BMI 38.1
[2019-11-03 13:10] LABS: Hemoglobin A1c 5.8 % (3.8-5.6)
[2019-11-03 13:19] LABS: ALB/GLOB Ratio 1.1 RATIO (0.9-2.4); AST(SGOT) 29 U/L (15-37); Alanine Aminotransfer ALT/SGPT 35 U/L (13-56); Albumin, Serum 3.9 g/dL (3.2-5.0); Alkaline Phosphatase 115 U/L (45-117); Anion Gap 9 (5-15); BUN 19 mg/dL (7-18); BUN/Creat Ratio 17.6 RATIO (10-20); Calcium,Total 9.3 mg/dL (8.5-10.1); Chloride 111 mmol/L (98-107); Creatinine, Serum 1.08 mg/dL (0.55-1.02); EST Glomerular Filtration Rate 54 mL/min (>60); Est Glom Filt Rate - Afr Amer 66 mL/min (>60); Globulin 3.4 g/dL (2.2-4.2); Glucose 119 mg/dL (74-106); Potassium 3.8 mmol/L (3.5-5.1); Protein, Total 7.3 g/dL (6.4-8.2); Sodium Level 143 mmol/L (136-145); Thyroid Stim Hormone (TSH) 1.88 uIU/mL (0.358-3.74)
[2019-11-03 13:27] LABS: Microalbumin,Random Urine 6.5 mg/L (NO RANGE EST.); Microalbumin:Creatinine Ratio 7.8 mg/g CRE (<30 mg/g CRE)
== END ==
PROVIDERS: PCP Family Medicine; Referring Provider Family Medicine; Visit Provider Family Medicine
DX: R35.1 Nocturia (principal); I10 Essential (primary) hypertension
CPT/HCPCS: 36415; 80053; 82043; 82570; 83036; 84443

== ENCOUNTER → 2020-08-09 11:18 | Outpatient (CLI) | payer OTHER, SELFPAY ==
[2018-08-03 14:20] VITALS: BMI 38.1
[2020-08-09 15:15] LABS: ALB/GLOB Ratio 0.9 RATIO (0.9-2.4); AST(SGOT) 26 U/L (15-37); Alanine Aminotransfer ALT/SGPT 28 U/L (13-56); Albumin, Serum 3.6 g/dL (3.2-5.0); Alkaline Phosphatase 130 U/L (45-117); Anion Gap 5 (5-15); BUN 22 mg/dL (7-18); BUN/Creat Ratio 19.6 RATIO (10-20); Calcium,Total 9.6 mg/dL (8.5-10.1); Chloride 110 mmol/L (98-107); Cholesterol 154 mg/dL (200); Creatinine, Serum 1.12 mg/dL (0.55-1.02); EST Glomerular Filtration Rate 52 mL/min (>60); Est Glom Filt Rate - Afr Amer 63 mL/min (>60); Globulin 4.1 g/dL (2.2-4.2); Glucose 109 mg/dL (74-106); High Density Lipoprotein 63 mg/dL; Potassium 3.9 mmol/L (3.5-5.1); Protein, Total 7.7 g/dL (6.4-8.2); Sodium Level 139 mmol/L (136-145); Triglycerides 87 mg/dL; Very Low Density Lipoprotein 17 mg/dL (5-40)
[2020-08-09 15:20] LABS: Hemoglobin A1c 5.7 % (3.8-5.6)
[2020-08-09 15:37] LABS: Microalbumin,Random Urine 13.9 mg/L (NO RANGE EST.); Microalbumin:Creatinine Ratio 11.1 mg/g CRE (<30 mg/g CRE)
== END ==
PROVIDERS: PCP Family Medicine; Referring Provider Family Medicine; Visit Provider Family Medicine
DX: E66.9 Obesity, unspecified (principal); E78.5 Hyperlipidemia, unspecified; I10 Essential (primary) hypertension
CPT/HCPCS: 36415; 80053; 80061; 82043; 82570; 83036

== ENCOUNTER → 2020-09-06 11:18 | Outpatient (CLI) | payer OTHER, SELFPAY ==
[2018-08-03 14:20] VITALS: BMI 38.1
--- NOTE | 2020-09-06 11:22 | BI_ITS ---
MAMMOGRAPHY - BILATERAL SCREENING 3-D TOMOSYNTHESIS REASON FOR EXAM: Female, 65 years old. screening PERTINENT HISTORY: No significant family history. TECHNIQUE: 2-D mammograms and 3-D Tomosynthesis of the breast (s) were performed. CAD was performed. COMPARISON: 07/01/2018 FINDINGS: The breast composition is of segmental dense heterogeneous fibroglandular tissue behind the areola bilaterally symmetrical in appearance. Possibility of ductal ectasia, rule out. The rest of the breasts show scattered fibroglandular tissue. No evidence of spiculated lesion, microcalcifications, skin thickening or nipple retraction. Small intramammary lymph node noted in the upper outer quadrant of the right breast. There has been no significant change since the prior study 07/01/2018. BI/SCRN MAMM (CAD)W/ELIZABETH BILAT IMPRESSION: No mammographic signs of malignancy. Routine yearly mammograms recommended. ASSESSMENT CATEGORY: BIRADS Category 1: Negative. A letter regarding these results will be sent to the patient by the facility within 30 days. FOLLOW UP RECOMMENDATION: Yearly follow up mammogram recommended. (A) Approximately 10% of breast cancers are not detected by mammography. A normal mammogram should not delay biopsy of a clinically suspicious abnormality. Electronically Signed: Antonio Campbell, at 15:39 EDT Tel , Service support ,
== END ==
PROVIDERS: PCP Family Medicine; Referring Provider Family Medicine; Visit Provider Family Medicine
DX: Z12.31 Encounter for screening mammogram for malignant neoplasm of breast (principal)
CPT/HCPCS: 77063; 77067

== ENCOUNTER → 2021-02-27 16:57 | Outpatient (CLI) | payer OTHER, SELFPAY ==
[2021-02-27 18:19] LABS: Anion Gap 12 (5-15); BUN 26 mg/dL (7-18); BUN/Creat Ratio 24.1 RATIO (10-20); Calcium,Total 10.4 mg/dL (8.5-10.1); Chloride 108 mmol/L (98-107); Creatinine, Serum 1.08 mg/dL (0.55-1.02); EST Glomerular Filtration Rate 54 mL/min (>60); Est Glom Filt Rate - Afr Amer 66 mL/min (>60); Glucose 92 mg/dL (74-106); Sodium Level 143 mmol/L (136-145)
== END ==
PROVIDERS: PCP Family Medicine; Visit Provider Family Medicine
DX: I10 Essential (primary) hypertension (principal)
CPT/HCPCS: 36415; 80048

== ENCOUNTER → 2021-03-02 09:49 | Outpatient (CLI) | payer OTHER, SELFPAY | PROVIDERS: PCP Family Medicine; Referring Provider Family Medicine; Visit Provider Family Medicine | DX: Z00.00 Encounter for general adult medical examination without abnormal findings (principal) ==

== ENCOUNTER → 2021-04-05 | Outpatient (CLI) | payer OTHER, SELFPAY ==
[2021-04-05 12:50] LABS: Vitamin D,25 Hydroxy 47.3 ng/mL
== END | disposition home or self-care (01) ==
LOC: MFPLAB 10:49
PROVIDERS: PCP Family Medicine; Referring Provider Family Medicine; Visit Provider Family Medicine
DX: I10 Essential (primary) hypertension (principal)
CPT/HCPCS: 36415; 82306; 83970

== ENCOUNTER → 2021-09-13 | Outpatient (CLI) | payer MEDICARE, SELFPAY ==
[2021-09-13 15:12] LABS: Absolute Neutrophil Count 4.4 X10^3/uL (2.0-7.7); Basophil# 0.03 X10^3/uL; Basophil% 0.4 % (0-1); Eosinophil# 0.09 X10^3/uL; Eosinophils% 1.3 % (0-5); Hematocrit 40.6 % (37-47); Lymphocyte % 27.7 % (19-41); Mean Corpuscular Hgb 28.6 pg (27.0-32.0); Mean Corpuscular Volume 89.2 fL (81-99); Mean Platelet Vol. 11.8 fl (6.2-12.0); Monocyte# 0.45 X10^3/uL; Monocyte% 6.6 % (0-10); NRBC Flagged by Analyzer 0 % (0-5); Neutrophil # 4.38 X10^3/uL (2.7-7.7); Neutrophil % 63.7 % (47-70); Platelet Count 203 K/mm3 (150-450); RBC Distribution Width CV 13.1 % (11.6-14.6); RBC Distribution Width SD 42.6 fl (35.1-43.9); Red Blood Count 4.55 M/mm3 (4.2-5.4); White Blood Count 6.9 K/mm3 (4.4-11.0)
[2021-09-13 15:39] LABS: Microalbumin,Random Urine 6.1 mg/L (NO RANGE EST.)
[2021-09-13 15:41] LABS: ALB/GLOB Ratio 1.1 RATIO (0.9-2.4); AST(SGOT) 43 U/L (15-37); Alanine Aminotransfer ALT/SGPT 50 U/L (13-56); Albumin, Serum 3.7 g/dL (3.2-5.0); Alkaline Phosphatase 120 U/L (45-117); Anion Gap 5 (5-15); BUN 17 mg/dL (7-18); BUN/Creat Ratio 15.6 RATIO (10-20); Calcium,Total 9.3 mg/dL (8.5-10.1); Chloride 110 mmol/L (98-107); Creatinine, Serum 1.09 mg/dL (0.55-1.02); EST Glomerular Filtration Rate 54 mL/min (>60); Est Glom Filt Rate - Afr Amer 65 mL/min (>60); Globulin 3.4 g/dL (2.2-4.2); Glucose 105 mg/dL (74-106); Protein, Total 7.1 g/dL (6.4-8.2); Sodium Level 141 mmol/L (136-145)
== END | disposition home or self-care (01) ==
LOC: MFPLAB 12:21
PROVIDERS: PCP Family Medicine; Visit Provider Family Medicine
DX: I12.9 Hypertensive chronic kidney disease with stage 1 through stage 4 chronic kidney disease, or unspecified chronic kidney disease (principal); N18.31 Chronic kidney disease, stage 3a; E66.9 Obesity, unspecified
CPT/HCPCS: 36415; 80053; 82043; 82570; 84443; 85025

== ENCOUNTER 2022-04-29 12:17 | Outpatient (RCR) | payer MEDICARE, SELFPAY ==
--- NOTE | 2022-04-29 13:23 | HP.PTEVAL_ITS ---
Patient's Visit Information DEMARIO BASHIR is a 66 year old F referred to Physical Therapy by Dr. Mason Lagunas MD with a diagnosis of Shoulder Pain. Date of Evaluation: 04/29/22 Physical Therapist: Dena Kee DPT - Visit Plan Frequency: 1x/Week Duration: 1 Week Plan: Patient will perform HEP indep and call if questions. HEP Given IE: Posture, Mid Row, Bilateral ER, Scapular Retractions, Chin Tucks - Subjective Patient reports that her right fingers went numb about 2 weeks ago- went to her PCP- had an evaluation but did not have any x-rays and then sent her to PT. She only has s/s when she is working on the computer. If she gets up and moves away from the computer the N/T goes away. The whole hand goes numb- no pain just N/T- but does have some coldness of the hands. 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 Right hand dominate. Takes about 5 min before her hands go numb. PMHx: HTN, neurologic migraines. Meds: atorvostatin and metroprolol, spironolactone, topomax - Objective Posture: FH, RS- can correct with verbal cues and can maintain. Gait: good arm swing and trunk rotation. Palpation: not tender to touch. ROM: Elbow/Wri st/hand: WFL, Shoulder: WFL Cervical Spine: WFL. Strength: Product Safety Lead/Elbow/Wrist: 5/5, Shoulder: 4+/5 throughout, Cervical Spine: 4+/5, Scap: fair - Special Tests R Shoulder Lift Off Test - Subscapular Tear: Negative R Shoulder Drop Sign - IS Test: Negative R Shoulder Empty Can - SS: Negative R Shoulder Belly Press - SupScap: Negative R Shoulder Neer - Impingement: Positive R Shoulder Osorio Ga - Impingement: Positive R Shoulder Biceps Load Test - Labrum: Negative - Balance/Special Test Scores Quick DASH Score: 11.3625 - Goals Goal 1:: Patient will be I with HEP and progression Goal Time Frame: 4-6 Weeks - Rehabilitation Potential Physical Therapy Diagnosis: Patient presents with decreased scapular s/s with poor posture leading to impingement of the shoulder with N/T in the right hand. Rehabilitation Potential: Excellent - Anticipated Interventions Patient/Client Instruction: Educate patient on: Benefits of Fitness Program Therapeutic Exercise to Include: Strength training Thank you for the opportunity to evaluate your patient. For Medicare and Medicare HMO plans, please review the plan of care and approve it. It will need to be FAXED BACK to us at [phone] for Medicare purposes. For Medicare only, by signing this I certify the plan of care. Please let me know if there are questions or concerns regarding this plan of ca re. Physician Signature: Date:
--- NOTE | 2022-06-10 07:42 | HP.PT.NRP ---
DEMARIO BASHIR was seen in my office for initial evaluation on 04/29/22. The following Plan of Care was established for this patient: Initial Frequency: 1x/Week Initial Duration: 1 Week Patient/Client Instruction: Educate patient on: Benefits of Fitness Program Therapeutic Exercise to Include: Strength training This patient was last seen in our office . Pertinent comments regarding their Physical therapy will appear below: Patient was to perform HEP and call if questions- appropriate to be d/c from PT and return to MD as appropriate At this point I will be discontinuing this patient from physical therapy. I would be happy to see this patient again in the future if found appropriate by the physician. Thank you! Dena Kee, ZULEMA Balance/Gait/Functional tests - Balance/Special Test Scores Quick DASH Score: 11.8287
== END 2022-04-29 19:00 | disposition home or self-care (01) ==
LOC: PT 12:17
PROVIDERS: PCP Family Medicine; Referring Provider Family Medicine; Visit Provider Family Medicine
DX: M75.01 Adhesive capsulitis of right shoulder (principal); R20.2 Paresthesia of skin
CPT/HCPCS: 97110; 97161

== ENCOUNTER → 2022-07-22 | Outpatient (CLI) | payer MEDICARE, SELFPAY ==
[2022-07-22 15:14] LABS: Absolute Lymphocyte Count 1.47 X10^3/uL (0.83-4.51); Absolute Neutrophil Count 4.8 X10^3/uL (2.0-7.7); Basophil# 0.02 X10^3/uL; Basophil% 0.3 % (0-1); Eosinophils% 1.5 % (0-5); Hematocrit 42.2 % (37-47); Hemoglobin 13.1 g/dL (12.0-15.0); Lymphocyte # 1.47 X10^3/ul (0.83-4.51); Lymphocyte % 21.7 % (19-41); Mean Corpuscular Hgb 28.7 pg (27.0-32.0); Mean Corpuscular Volume 92.5 fL (81-99); Mean Platelet Vol. 11.9 fl (6.2-12.0); Monocyte# 0.35 X10^3/uL; Monocyte% 5.2 % (0-10); NRBC Flagged by Analyzer 0 % (0-5); Neutrophil # 4.81 X10^3/uL (2.7-7.7); Platelet Count 223 K/mm3 (150-450); RBC Distribution Width CV 12.8 % (11.6-14.6); RBC Distribution Width SD 43.7 fl (35.1-43.9); Red Blood Count 4.56 M/mm3 (4.2-5.4); White Blood Count 6.8 K/mm3 (4.4-11.0)
[2022-07-22 15:40] LABS: Vitamin D,25 Hydroxy 74.2 ng/mL
[2022-07-22 15:44] LABS: ALB/GLOB Ratio 0.8 RATIO (0.9-2.4); AST(SGOT) 30 U/L (15-37); Alanine Aminotransfer ALT/SGPT 34 U/L (13-56); Albumin, Serum 3.7 g/dL (3.2-5.0); Alkaline Phosphatase 143 U/L (45-117); Anion Gap 8 (5-15); BUN 22 mg/dL (7-18); BUN/Creat Ratio 20.6 RATIO (10-20); Calcium,Total 9.3 mg/dL (8.5-10.1); Chloride 109 mmol/L (98-107); Cholesterol 152 mg/dL (200); Creatinine, Serum 1.07 mg/dL (0.55-1.02); EST Glomerular Filtration Rate 55 mL/min (>60); Est Glom Filt Rate - Afr Amer 66 mL/min (>60); Globulin 4.6 g/dL (2.2-4.2); Glucose 94 mg/dL (74-106); High Density Lipoprotein 63 mg/dL; Potassium 4.1 mmol/L (3.5-5.1); Protein, Total 8.3 g/dL (6.4-8.2); Sodium Level 141 mmol/L (136-145); Thyroid Stim Hormone (TSH) 1.63 uIU/mL (0.358-3.74); Triglycerides 99 mg/dL; Very Low Density Lipoprotein 20 mg/dL (5-40)
[2022-07-22 15:57] LABS: Microalbumin,Random Urine 9.1 mg/L (NO RANGE EST.); Microalbumin:Creatinine Ratio 14.1 mg/g CRE (<30 mg/g CRE)
[2022-07-22 16:18] LABS: Hemoglobin A1c 5.6 % (3.8-5.6)
== END | disposition home or self-care (01) ==
LOC: MFPLAB 12:25
PROVIDERS: PCP Family Medicine; Visit Provider Family Medicine
DX: E66.9 Obesity, unspecified (principal); N18.31 Chronic kidney disease, stage 3a; I12.9 Hypertensive chronic kidney disease with stage 1 through stage 4 chronic kidney disease, or unspecified chronic kidney disease; E78.5 Hyperlipidemia, unspecified; Z79.899 Other long term (current) drug therapy
CPT/HCPCS: 36415; 80053; 80061; 82043; 82306; 82570; 83036; 84443; 85025

== ENCOUNTER → 2022-08-14 | Outpatient (CLI) | payer MEDICARE, SELFPAY ==
--- NOTE | 2022-08-14 09:48 | BI_ITS ---
MAMMOGRAPHY - BILATERAL SCREENING REASON FOR EXAM: Female, 66 years old. Routine annual screening examination. PERTINENT HISTORY: Aunt with breast cancer. TECHNIQUE: Digital bilateral breast elizabeth (3D mammographic acquisition) in the CC and MLO projections. 2-D mediolateral oblique (MLO) and craniocaudad (CC) views of both breasts were obtained. CAD: Full Field Digital Mammography with Computer Added Detection was performed. COMPARISON: Comparison is made with prior study dated September 06, 2020 and July 01, 2018. FINDINGS: Breast Composition: There are scattered areas of fibroglandular density. There are no dominant masses or suspicious calcifications. No other significant abnormalities are identified. There has been no significant change since the prior study. BI/SCRN MAMM (CAD)W/ELIZABETH BILAT IMPRESSION: Stable bilateral screening mammogram. Yearly follow-up mammogram recommended. (A) ASSESSMENT CATEGORY: BIRADS Category 1: Negative. A letter regarding these results will be sent to the patient by the facility within 30 days. Approximately 10% of breast cancers are not detected by mammography. A normal mammogram should not delay biopsy of a clinically suspicious abnormality. [id number] Electronically Signed: Alex Barber MD at 11:07 EDT ,
--- NOTE | 2022-08-14 10:20 | BD_ITS ---
STUDY: DUAL ENERGY X-RAY ABSORPTIOMETRY / DXA REASON FOR EXAM: Female, 66 years old. Z78.0 TECHNIQUE: Bone Mineral Density (BMD) measurements of lumbar spine and bilateral hips were obtained. COMPARISON: None. FINDINGS: Lumbar Spine (L1-L4): g/cm2 (0.950) / T-score (-0.6) / Z-score (1.2) Findings are suggestive of normal bone density with a low fracture risk. Left Femur Total: g/cm2 (0.967) / T-score (0.2) / Z-score (1.5) Left Femoral Neck: g/cm2 (0.676) / T-score (-1.6) / Z-score (0.0) Right Femur Total: g/cm2 (0.974) / T-score (0.3) / Z-score (1.5) Right Femoral Neck: g/cm2 (0.697) / T-score (-1.4) / Z-score (0.2) BD/Dexa Bone Density Study IMPRESSION: The patient is considered osteopenic as outlined below according to World Zheng Organization (WHO) criteria with a moderate fracture risk. Reference Information: The T-score is the number of standard deviations above or below the standard which is normal for young adults at their peak bone mineral density. The World Health Organization (WHO) interprets the T-scores as follows: Above -1 Normal bone density Between -1 and -2.5 Osteopenia Equal to / or below -2.5 Osteoporosis As a practical clinical guideline, osteopenia may be graded as follows: Mild -1 through -1.5 Moderate -1.6 through -2.0 Severe -2.1 through -2.4 The Z-score is the number of standard deviations above or below age-matched controls. A Z-score of less than -1.5 would be considered abnormal. References: 1. NIH Osteoporosis and Related Bone Diseases www osteo.org 2. International Society for Clinical Densitometry www iscd.org 3. National Osteoporosis Foundation www nof.org Electronically Signed: Alex Barber MD at 9:43 EDT ,
== END | disposition home or self-care (01) ==
LOC: OPBI 09:47
PROVIDERS: PCP Family Medicine; Referring Provider Family Medicine; Visit Provider Family Medicine
DX: Z12.31 Encounter for screening mammogram for malignant neoplasm of breast (principal); Z78.0 Asymptomatic menopausal state
CPT/HCPCS: 77063; 77067; 77080

== ENCOUNTER → 2023-09-11 | Outpatient (CLI) | payer MEDICARE, SELFPAY ==
[2023-09-11 18:13] LABS: Absolute Lymphocyte Count 2.42 X10^3/uL (0.83-4.51); Absolute Neutrophil Count 5.5 X10^3/uL (2.0-7.7); Basophil# 0.04 X10^3/uL; Basophil% 0.5 % (0-1); Eosinophil# 0.11 X10^3/uL; Eosinophils% 1.3 % (0-5); Hematocrit 39.2 % (37-47); Hemoglobin 12.9 g/dL (12.0-15.0); Lymphocyte # 2.42 X10^3/ul (0.83-4.51); Lymphocyte % 28.3 % (19-41); Mean Corp Hgb Conc 32.9 g/dL (32-36); Mean Corpuscular Hgb 28.7 pg (27.0-32.0); Mean Corpuscular Volume 87.1 fL (81-99); Mean Platelet Vol. 11.9 fl (6.2-12.0); Monocyte# 0.48 X10^3/uL; Monocyte% 5.6 % (0-10); NRBC Flagged by Analyzer 0 % (0-5); Neutrophil # 5.45 X10^3/uL (2.7-7.7); Neutrophil % 63.8 % (47-70); Platelet Count 243 K/mm3 (150-450); RBC Distribution Width CV 12.8 % (11.6-14.6); RBC Distribution Width SD 40.2 fl (35.1-43.9); White Blood Count 8.5 K/mm3 (4.4-11.0)
[2023-09-11 18:29] LABS: Microalbumin,Random Urine 25.4 mg/L (NO RANGE EST.); Microalbumin:Creatinine Ratio 44.4 mg/g CRE (<30 mg/g CRE)
[2023-09-11 18:32] LABS: Vitamin D,25 Hydroxy 62.6 ng/mL
[2023-09-11 18:46] LABS: ALB/GLOB Ratio 0.8 RATIO (0.9-2.4); AST(SGOT) 42 U/L (15-37); Alanine Aminotransfer ALT/SGPT 84 U/L (13-56); Albumin, Serum 3.3 g/dL (3.2-5.0); Alkaline Phosphatase 109 U/L (45-117); Anion Gap 11 (5-15); BUN 40 mg/dL (7-18); BUN/Creat Ratio 26.1 RATIO (10-20); Calcium,Total 9.6 mg/dL (8.5-10.1); Chloride 108 mmol/L (98-107); Creatinine, Serum 1.53 mg/dL (0.55-1.02); EST Glomerular Filtration Rate 36 mL/min (>60); Est Glom Filt Rate - Afr Amer 44 mL/min (>60); Globulin 4.1 g/dL (2.2-4.2); Glucose 117 mg/dL (74-106); Potassium 3.7 mmol/L (3.5-5.1); Protein, Total 7.4 g/dL (6.4-8.2); Sodium Level 139 mmol/L (136-145)
== END | disposition home or self-care (01) ==
LOC: MFPLAB 15:38
PROVIDERS: PCP Family Medicine; Visit Provider Family Medicine
DX: N18.31 Chronic kidney disease, stage 3a (principal)
CPT/HCPCS: 36415; 80053; 82043; 82306; 82570; 85025

== ENCOUNTER → 2024-02-17 | Outpatient (CLI) | payer MEDICARE, SELFPAY ==
[2024-02-17 16:05] LABS: Microalbumin,Random Urine 7.4 mg/L (NO RANGE EST.); Microalbumin:Creatinine Ratio 10.4 mg/g CRE (<30 mg/g CRE)
== END | disposition home or self-care (01) ==
LOC: MFPLAB 11:48
PROVIDERS: PCP Family Medicine; Referring Provider Family Medicine; Visit Provider Family Medicine
DX: N18.31 Chronic kidney disease, stage 3a (principal)
CPT/HCPCS: 36415; 80048; 82043; 82570

== ENCOUNTER → 2024-08-11 | Outpatient (CLI) | payer MEDICARE, SELFPAY ==
--- NOTE | 2024-08-11 14:33 | BI_ITS ---
EXAM: SCRN MAMM (CAD)W/ELIZABETH BILAT 08/11/2024 CLINICAL HISTORY: F, Age 68 y/o , SCREENING TECHNIQUE: Bilateral screening digital breast tomosynthesis with 2D and 3D images. Computer aided detection. COMPARISON: Prior exam(s) dated 08/14/2022, 09/06/2020. FINDINGS: TISSUE DENSITY: The breast tissue is composed of scattered area of fibroglandular density.. Bilateral Breast Mammographic Findings: No significant masses, calcifications or other abnormalities are identified. BI/SCRN MAMM (CAD)W/ELIZABETH BILAT IMPRESSION: Right Breast: BIRADS 1 NEGATIVE. Left Breast: BIRADS 1 NEGATIVE. OVERALL FINAL ASSESSMENT: BIRADS 1 NEGATIVE. RECOMMENDATION: Routine annual follow-up in 1 Year A letter with findings and recommendations will be mailed to the patient. Reading Location: [id number]
== END | disposition home or self-care (01) ==
LOC: OPBI 14:31
PROVIDERS: PCP Family Medicine; Referring Provider Family Medicine; Visit Provider Family Medicine
DX: Z12.31 Encounter for screening mammogram for malignant neoplasm of breast (principal)
CPT/HCPCS: 77063; 77067

== ENCOUNTER → 2024-10-01 | Outpatient (CLI) | payer MEDICARE, SELFPAY ==
[2024-10-01 17:53] LABS: Hematocrit 40.1 % (37-47); Hemoglobin 13.3 g/dL (12.0-15.0); Immature Granulocytes Count 0.020 X10^3/uL (0.0-0.0); Mean Corp Hgb Conc 33.2 g/dL (32-36); Mean Corpuscular Volume 87.6 fL (81-99); Mean Platelet Vol. 13.3 fl (6.2-12.0); NRBC Flagged by Analyzer 0 % (0-5); Platelet Count 180 K/mm3 (150-450); RBC Distribution Width CV 13.1 % (11.6-14.6); RBC Distribution Width SD 41.5 fl (35.1-43.9); Red Blood Count 4.58 M/mm3 (4.2-5.4); White Blood Count 8.7 K/mm3 (4.4-11.0)
[2024-10-01 18:21] LABS: Creatinine, Urine (random) 51.90 mg/dL (28.00-217.00); Microalbumin,Random Urine < 12.0 mg/L (<20 mg/L)
[2024-10-01 18:32] LABS: AST(SGOT) 27 U/L (<=31); Alanine Aminotransfer ALT/SGPT 21 U/L (<=34); Albumin, Serum 4.2 g/dL (3.4-4.8); Alkaline Phosphatase 148 U/L (35-104); Anion Gap 13 (5-15); BUN 19 mg/dL (4-19); BUN/Creat Ratio 16.9 RATIO (10-20); Calcium,Total 10.0 mg/dL (7.6-11.0); Carbon Dioxide 21.8 mmol/L (21.0-32.0); Chloride 105 mmol/L (98-108); Cholesterol 158 mg/dL (<=200); Globulin 3.6 g/dL (2.2-4.2); Glucose 104 mg/dL (70-99); Low Density Lipoprotein Calc. 70 mg/dL; Magnesium 1.9 mg/dL (1.5-2.2); Potassium 4.0 mmol/L (3.3-5.1); Triglycerides 138 mg/dL; Very Low Density Lipoprotein 28 mg/dL (5-40); cholesterol:hdl ratio screen 2.62
== END | disposition home or self-care (01) ==
LOC: MFPLAB 15:03
PROVIDERS: PCP Family Medicine; Referring Provider Family Medicine; Visit Provider Family Medicine
DX: I12.9 Hypertensive chronic kidney disease with stage 1 through stage 4 chronic kidney disease, or unspecified chronic kidney disease (principal); N18.31 Chronic kidney disease, stage 3a
CPT/HCPCS: 80053; 80061; 82043; 82570; 83735; 84443; 85025

== ENCOUNTER → 2024-10-07 | Outpatient (CLI) | payer MEDICARE, SELFPAY ==
--- NOTE | 2024-10-07 10:30 | BD_ITS ---
PROCEDURE: DEXA BONE DENSITY STUDY 10/07/2024 REASON FOR EXAM: F, age 69 y/o . Postmenopausal. TECHNIQUE: DEXA BONE DENSITY STUDY COMPARISON: None FINDINGS: BMD and T-SCORES Lumbar spine: 0.981 g/cm2, T-score -0.6 Levels: L1 through L4 Left femoral neck: 0.647 g/cm2, T-score -1.8 Femoral neck comparison data not recommended for monitoring change. Left total hip: 0.957 g/cm2, T-score 0.1 Change from prior: Loss of 1%. Right femoral neck: 0.679 g/cm2, T-score -1.5 Femoral neck comparison data not recommended for monitoring change. Right total hip: 0.911 g/cm2, T-score -0.3 Change from prior: Loss of 6.5%. The World Health Organization has defined the following categories based on bone density: Normal bone density: T-score equal to or greater than -1.0 Osteopenia: T-score between -1.0 and -2.5 Osteoporosis: T-score equal to or less than -2.5 The patient does meet the pharmacological treatment recommendations for prevention of osteoporosis. BD/Dexa Bone Density Study IMPRESSION: OSTEOPENIA. Recommend follow-up as clinically warranted. Reading Location: [id number]
== END | disposition home or self-care (01) ==
LOC: OPBD 10:29
PROVIDERS: PCP Family Medicine; Referring Provider Nurse Practitioner Family; Visit Provider Nurse Practitioner Family
DX: Z78.0 Asymptomatic menopausal state (principal)
CPT/HCPCS: 77080

== ENCOUNTER → 2024-12-15 | Outpatient (CLI) | payer MEDICARE, SELFPAY ==
[2024-12-15 16:10] LABS: AST(SGOT) 27 U/L (<=31); Alanine Aminotransfer ALT/SGPT 22 U/L (<=34); Albumin, Serum 4.1 g/dL (3.4-4.8); Alkaline Phosphatase 139 U/L (35-104); Anion Gap 12 (5-15); BUN 28 mg/dL (4-19); BUN/Creat Ratio 24.1 RATIO (10-20); CRP 11.50 mg/L (0.0-3.0); Calcium,Total 10.1 mg/dL (7.6-11.0); Carbon Dioxide 24.2 mmol/L (21.0-32.0); Chloride 104 mmol/L (98-108); Globulin 3.5 g/dL (2.2-4.2); Glucose 109 mg/dL (70-99); Potassium 4.0 mmol/L (3.3-5.1)
[2024-12-15 16:32] LABS: Prothrombin Time (Protime)PT. 13.1 SECONDS (11.7-14.9)
[2024-12-15 16:33] LABS: Partial Thromboplast Time 25.2 Seconds (24.1-36.2)
[2024-12-15 16:59] LABS: Hematocrit 39.9 % (37-47); Hemoglobin 13.3 g/dL (12.0-15.0); Immature Granulocytes Count 0.040 X10^3/uL (0.0-0.0); Mean Corp Hgb Conc 33.3 g/dL (32-36); Mean Corpuscular Volume 87.5 fL (81-99); Mean Platelet Vol. 13.2 fl (6.2-12.0); NRBC Flagged by Analyzer 0 % (0-5); Platelet Count 212 K/mm3 (150-450); RBC Distribution Width CV 12.9 % (11.6-14.6); RBC Distribution Width SD 41.3 fl (35.1-43.9); Red Blood Count 4.56 M/mm3 (4.2-5.4); White Blood Count 8.8 K/mm3 (4.4-11.0)
[2024-12-16 12:31] LABS: CPK Total, Creatine Kinase 93 U/L (24-195)
[2024-12-17 16:09] LABS: Anti-Chromatin <0.2 AI (0.0-0.9); Anti-Jo <0.2 AI (0.0-0.9); Anti-dsDNA Ab <1 IU/mL (0-9); Anti-ribosomal P Antibodies <0.2 AI (0.0-0.9); Creatine Kinase BB 0 % (0); Creatine Kinase MM 100 % (97-100); Creatine Kinase,Total,Serum 101 U/L (32-182); Macro I 0 % (Not Observed); Macro II 0 % (Not Observed); SJOGREN'S Anti-SS-A test < 0.2 AI (0.0-0.9); SJOGREN'S Anti-SS-B test < 0.2 AI (0.0-0.9); Smith/RNP Ab <0.2 AI (0.0-0.9)
[2024-12-20 16:09] LABS: PROEL- A/G Ratio 1.0 (0.7-1.7); PROEL- Albumin 3.5 g/dL (2.9-4.4); PROEL- Alpha-1 Globulin 0.2 g/dL (0.0-0.4); PROEL- Alpha-2 Globulin 0.9 g/dL (0.4-1.0); PROEL- Beta Globulin 1.3 g/dL (0.7-1.3); PROEL- Gamma Globulin 1.0 g/dL (0.4-1.8); PROEL- Globulin, Total 3.5 g/dL (2.2-3.9); PROEL- TOTAL PROTEIN 7.0 g/dL (6.0-8.5); PROEL-M-Spike Not Observed g/dL (Not Observed)
== END | disposition home or self-care (01) ==
LOC: MTLAB 13:08
PROVIDERS: PCP Family Medicine; Referring Provider Family Medicine; Visit Provider Family Medicine
DX: R79.82 Elevated C-reactive protein (CRP) (principal); N18.31 Chronic kidney disease, stage 3a
CPT/HCPCS: 36415; 80053; 82550; 82552; 82595; 84165; 85025; 85610; 85652; 85730; 86140; 86225; 86235

== ENCOUNTER → 2025-01-04 | Outpatient (CLI) | payer MEDICARE, SELFPAY ==
--- NOTE | 2025-01-04 17:21 | CT_ITS ---
PROCEDURE: EXTREMITY LOWER WITH CONTRAST 01/04/2025 REASON FOR EXAM: L HIP PAIN AND ELEVATED INFLAMMATORY MARKERS TECHNIQUE: Procedure Code: CTELW Modality: CT Procedure: EXTREMITY LOWER WITH CONTRAST Coronal and Sagittal reconstruction series were provided. CONTRAST: Isovue 370 VOLUME: 74 mL One or more dose reduction techniques were used (e.g., Automated exposure control, adjustment of the mA and/or kV according to patient size, use of iterative reconstruction technique). RADIATION DOSE SUMMARY: CTDlvol: 40.28 mGy DLP: 1508.79 mGycm COMPARISON: None. FINDINGS: Bones: No acute bony abnormalities. Joints: Unremarkable. Soft Tissues: No soft tissue abnormalities. CT/Extremity Lower WITH Contrast IMPRESSION: Unremarkable CT scan of the left hip. No evident arthritis changes. Reading Location: [id number]
--- OUTSIDE RECORDS SUMMARY | 2025-01-04 17:25 | XMS RPT_ITS | CCD ---
Author Organization [facility] CliniSyct Care Team Providers [facility] Teacher Name Role Phone RODRICK LOVE Unavailable Unavailable PEDRO HINTON Unavailable Unavail able Bebo KHAN, Dr. Cuevas Primary Care Provider [phone] Bebo KHAN, Dr. Cuevas Attending Provider Bebo KHAN, Dr. Cuevas Referring Provider Amanda STATION MASTER-C, Dena Attending Provider Amanda STATION MASTER-C, Dena Referring Provider Lagunas, Mason Attending Unavailable Lagunas, Mason Referring Unavailable Lagunas, Mason Primary Care Unavailable Lagunas, Mason Attending Unavailable Lagunas, Mason Referring Unavailable Lagunas, Mason Primary Care Unavailable Lagunas, Mason Primary Care Unavailable Lagunas, Mason Attending Unavailable Lagunas, Mason Referring Unavailable Lagunas, Mason Primary Care Unavailable Lagunas, Mason Attending Unavailable Lagunas, Mason Referring Unavailable Lagunas, Mason Primary Care Unavailable Lagunas, Mason Attending Unavailable Lagunas, Mason Referring Unavailable Lagunas, Mason Primary Care Unavailable Amanda STATION MASTER, Dena Attending Unavailable Amanda STATION MASTER, Dena Referring Unavailable Allergies Allergy Classification Reported Allergen(s) Allergy Type Date of Onset Reaction(s) Facility (8 sources) meloxicam Drug Allergy 08-03-2018 Diarrhea [facility] (1 source) meloxicam Drug Allergy 08-03-2018 [facility] Repository Medications Current Medications Medication Drug Class(es) Dates Sig (Normalized) Sig (Original) aspirin 81 mg chewable tablet (8 sources) Platelet Aggregation Inhibitor, Nonsteroidal Anti-inflammatory Drug Start: 06-24-2018 take 1 tablet by mouth once daily Aspirin 81 MG tablet,chewable Active 81 mg PO DAILY@0800 30 0 June 24, 2018 12:00am atorvastatin 20 mg oral tablet (8 sources) HMG-CoA Reductase Inhibitor Start: 06-21-2013 take 1 tablet by mouth at bedtime Atorvastatin 20 MG tablet Active 20 mg PO AT BEDTIME 30 1 June 21, 2013 12:00am cholecalciferol 0.025 mg oral tablet (8 sources) Vitamin D Start: 06-23-2018 take 3 tablets by mouth once daily Cholecalciferol (Vitamin D3) 1,000 UNIT tablet Active 3000 U PO DAILY June 23, 2018 12:00am Start: 06-23-2018 take 3000 [IU] by mo [facility] once daily Cholecalciferol (Vitamin D3) Active 3000 UNIT PO DAILY June 23, 2018 12:00am 24 hr metoprolol succinate 50 mg extended release oral tablet (8 sources) beta-Adrenergic [place] Start: 06-23-2018 take 1 tablet by mouth once daily Metoprolol Succinate 50 MG tablet extended release 24 hr Active 50 mg PO DAILY June 23, 2018 12:00am nitroglycerin 0.4 mg sublingual tablet (8 sources) Nitrate Vasodilator Start: 06-24-2018 Nitroglycerin 0.4 MG tablet Active 0.4 mg SL Q5M as needed for Cardiac/Chest Pain 30 0 June 24, 2018 12:00am Start: 06-24-2018 Nitroglycerin Active 0.4 MG SL Q5M June 24, 2018 12:00am spironolactone 50 mg oral tablet (8 sources) Aldosterone Antagonist Start: 06-23-2018 take 1 tablet by mouth at dinner Spironolactone 50 MG tablet Active 50 mg PO WITH DINNER June 23, 2018 12:00am topiramate 25 mg oral tablet (8 sources) Start: 06-23-2018 take 1 tablet by mouth twice daily Topiramate 25 MG tablet Active 25 mg PO TWICE A DAY June 23, 2018 12:00am takes at 1200, 2300 Completed/Discontinued Medications Medication Drug Class(es) Dates Sig (Normalized) Sig (Original) Butterbur Root Extract (5 sources) Start: 06-23-2018 End: 08-03-2018 take 50 mg by mouth twice daily Butterbur Root Extract Discontinued 50 MG PO TWICE A DAY June 23, 2018 10:09am August 03, 2018 2:18pm Start: 06-23-2018 End: 08-03-2018 take 50 mg by mouth twice daily Butterbur Root Extract Discontinued 50 MG PO TWICE A DAY June 23, 2018 12:00am August 03, 2018 2:18pm Butterbur Root Extract 50 MG capsule (3 sources) Start: 06-23-2018 End: 08-03-2018 take 1 capsule by mouth twice daily Radha Root Extract 50 MG capsule Discontinued 50 mg PO TWICE A DAY June 23, 2018 12:00am August 03, 2018 2:18pm Problems Active Problems Problem Classification Problem Date Documented Da te Episodic/Chronic Chronic kidney disease (1 source) Chronic kidney disease; Translations: [Chronic kidney disease, stage 3a] Onset: 03-18-2024 Essential hypertension (8 sources) Hypertensive disorder; Translations: [Essential (primary) hypertension] 06-23-2018 Chronic Hypertension with complications and secondary hypertension (1 source) Hypertensive chronic kidney disease with stage 1 through stage 4 chronic kidney disease, or unspecified chronic kidney disease; Translations: [Hypertensive chronic kidney disease with stage 1 through stage 4 chronic kidney disease, or unspecified chronic kidney disease] Onset: 10-07-2024 Chronic Other non-traumatic joint disorders (1 source) Pain in left hip; Translations: [Pain in left hip] Onset: 12-27-2024 Episodic Other nutritional; endocrine; and metabolic disorders (8 sources) Obesity; Translations: [Obesity, unspecified] 06-23-2018 Chronic Residual codes; unclassified (1 source) Asymptomatic menopausal state; Translations: [Asymptomatic menopausal state] Onset: 10-12-2024 Episodic Unclassified (1 source) Unknown / UNK(Unknown) Onset: 04-02-2017 Unclassified (8 sources) Secondhand exposure to smoking 06-23-2018 Past or Other Problems Problem Classification Problem Date Documented Da te Episodic/Chronic Unclassified (2 sources) Encounter for screening mammogram for malignant neoplasm of breast; Translations: [Encounter for screening mammogram for malignant neoplasm of breast] Onset: 02-21-2017 Episodic Results Test Name Value Interpretation Reference Range Facility Cryoglobulins, Serumon 12-20 CRYOGLOBULIN,S TNP Normal . [facility] Comment on above: Order Comment: Order Date: 09/24/24 Order Info: [id number] - CMP Order Info: [id number] - LIPID Order Info: [id number] - MG Order Info: [id number] - TSH Result Comment: Test not performed. Insufficient specimen to perform or complete analysis. CONTACTED RANDOLPH AT YOUR FACILITY ON 12-20-2024 Performed By: #### L 500.1849, L500.4050, L501.9520, L100.0100, L501.5200 #### [facility] [address] [place], [address] Protein Electroph, Son 12-20 Albumin [Mass/Vol] 3.5 g/dL Normal 2.9-4.4 [facility] Comment on above: Order Comment: Order Date: 09/24/24 Order Info: [id number] - CMP Order Info: [id number] - LIPID Order Info: [id number] - MG Order Info: [id number] - TSH Performed By: #### L 500.4100, L500.4050, L501.9520, L100.0100, L501.5200 #### [facility] [address] [place], [address] Albumin/Globulin [Mass ratio] 1.0 {ratio} Normal 0.7-1.7 [facility] Comment on above: Order Comment: Order Date: 09/24/24 Order Info: 785-1 - CMP Order Info: [id number] - LIPID Order Info: [id number] - MG Order Info: [id number] - TSH Performed By: #### L 500.4100, L500.4050, L501.9520, L100.0100, L501.5200 #### [facility] [address] [place], [address] ALPHA-1 GLOBUL 0.2 g/dL Normal 0.0-0.4 [facility] Comment on above: Order Comment: Order Date: 09/24/24 Order Info: [id number] - CMP Order Info: [id number] - LIPID Order Info: [id number] - MG Order Info: [id number] - TSH Performed By: #### L 500.4100, L500.4050, L501.9520, L100.0100, L501.5200 #### [facility] [address] [place], [address] ALPHA-2 GLOBUL 0.9 g/dL Normal 0.4-1.0 [facility] Comment on above: Order Comment: Order Date: 09/24/24 Order Info: 785- - CMP Order Info: [id number] - LIPID Order Info: [id number] - MG Order Info: [id number] - TSH Performed By: #### L 500.4100, L500.4050, L501.9520, L100.0100, L501.5200 #### [facility] [address] [place], [address] BETA GLOBULIN 1.3 g/dL Normal 0.7-1.3 [facility] Comment on above: Order Comment: Order Date: 09/24/24 Order Info: 785- - CMP Order Info: [id number] - LIPID Order Info: [id number] - MG Order Info: 3 - TSH Performed By: #### L 500.4100, L500.4050, L501.9520, L100.0100, L501.5200 #### [facility] [address] [place], [address] GAMMA GLOBULIN 1.0 g/dL Normal 0.4-1.8 [facility] Comment on above: Order Comment: Order Date: 09/24/24 Order Info: 785-03 - CMP Order Info: [id number] - LIPID Order Info: [id number] - MG Order Info: 3 - TSH Performed By: #### L 500.4100, L500.4050, L501.9520, L100.0100, L501.5200 #### [facility] [address] [place], [address] Globulin (S) [Mass/Vol] 3.5 g/dL Normal 2.2-3.9 [facility] Comment on above: Order Comment: Order Date: 09/24/24 Order Info: 0786 - CMP Order Info: [id number] - LIPID Order Info: [id number] - MG Order Info: 3 - TSH Performed By: #### L 500.4100, L500.4050, L501.9520, L100.0100, L501.5200 #### [facility] [address] [place], [place], [id number] INTERPRETATION Comment Normal . [facility] Comment on above: Order Comment: Order Date: 09/24/24 Order Info: 07-1 - CMP Order Info: [id number] - LIPID Order Info: [id number] - MG Order Info: 3016-3 - TSH Result Comment: Prot ein electrophoresis scan will follow via computer, mail, or extraction supervisor delivery. Performed By: #### L 500.4100, L500.4050, L501.9520, L100.0100, L501.5200 #### [facility] [address] [place], [place], [address] M-SPIKE Not Observed Normal Not Observed [facility] Comment on above: Order Comment: Order Date: 09/24/24 Order Info: 785-03 - CMP Order Info: [id number] - LIPID Order Info: [id number] - MG Order Info: 3016-3 - TSH Performed By: #### L 500.4100, L500.4050, L501.9520, L100.0100, L501.5200 #### [facility] [address] [place], [place], [id number] NOTE: Comment Normal . [facility] Comment on above: Order Comment: Order Date: 09/24/24 Order Info: 785-03 - CMP Order Info: [id number] - LIPID Order Info: [id number] - MG Order Info: 3016-3 - TSH Result Comment: The SPE pattern appears unremarkable. Evidence of monoclonal protein is not apparent. Performed By: #### L 500.4100, L500.4050, L501.9520, L100.0100, L501.5200 #### [facility] [address] [place], [place], [address] Protein [Mass/Vol] 7.0 g/dL Normal 6.0-8.5 [facility] Comment on above: Order Comment: Order Date: 09/24/24 Order Info: 86- - CMP Order Info: [id number] - LIPID Order Info: [id number] - MG Order Info: 3016-3 - TSH Performed By: #### L 500.4100, L500.4050, L501.9520, L100.0100, L501.5200 #### [facility] [address] [place], [address] ADDISON w/Comprehensiveon 2024 ADDISON TABLE Comment Normal . [facility] Comment on above: Order Comment: Order Date: 09/24/24 Order Info: 86- - CMP Order Info: [id number] - LIPID Order Info: - MG Order Info: [id number] - TSH Result Comment: Auto antibody Disease Association Condition Frequency Antinuclear Antibody, SLE, mixed connective Direct (ADDISON-D) tissue diseases dsDNA SLE 40 - 60% Chromatin Drug induced SLE 90% SLE 48 - 97% SSA (Ro) SLE 25 - 35% Sjogren's Syndrome 40 - 70% Lupus 100% SSB (La) SLE 10% Sjogren's Syndrome 30% Sm (anti-Lagunas) SLE 15 - 30% [employer] Mixed Connective Tissue Disease 95% (U1 nRNP, SLE 30 - 50% anti-ribonucleoprotein) Polymyositis and/or Dermatomyositis 20% Scl-70 (antiDNA Scleroderma (diffuse) 20 - 35% topoisomerase) Crest 13% Teresa-1 Polymyositis and/or Dermatomyositis 20 - 40% Centromere B Scleroderma - Crest variant 80% Ribosomal P SLE 10 - 20% Performed By: #### L 500.4100, L500.4050, L501.9520, L100.0100, L501.5200 #### [facility] [address] [place], [address] ANTI-DNA (DS)AB <1 Normal 0-9 [facility] Comment on above: Order Comment: Order Date: 09/24/24 Order Info: 86-1 - CMP Order Info: [id number] - LIPID Order Info: [id number] - MG Order Info: 3016-3 - TSH Result Comment: Nega tive <5 Equivocal 5 - 9 Positive >9 Performed By: #### L 500.4100, L500.4050, L501.9520, L100.0100, L501.5200 #### [facility] [address] [place], [place], [id number] ANTI-SS-A < 0.2 Normal 0.0-0.9 [facility] Comment on above: Order Comment: Order Date: 09/24/24 Order Info: 785-03 - CMP Order Info: - LIPID Order Info: [id number] - MG Order Info: 3016-3 - TSH Performed By: #### L 500.4100, L500.4050, L501.9520, L100.0100, L501.5200 #### [facility] [address] [place], [address] ANTI-SS-B < 0.2 Normal 0.0-0.9 [facility] Comment on above: Order Comment: Order Date: 09/24/24 Order Info: 785-1 - CMP Order Info: [id number] - LIPID Order Info: [id number] - MG Order Info: 3016-3 - TSH Performed By: #### L 500.4100, L500.4050, L501.9520, L100.0100, L501.5200 #### [facility] [address] [place], [address] Antiribosomal P <0.2 Normal 0.0-0.9 [facility] Comment on above: Order Comment: Order Date: 09/24/24 Order Info: 86-1 - CMP Order Info: [id number] - LIPID Order Info: [id number] - MG Order Info: 3016-3 - TSH Performed By: #### L 500.4100, L500.4050, L501.9520, L100.0100, L501.5200 #### [facility] [address] [place], [address] CPK Isoenzyme (Ref. Lab)on CK-BB 0 Normal 0 [facility] Comment on above: Order Comment: Order Date: 09/24/24 Order Info: 785- - CMP Order Info: [id number] - LIPID Order Info: [id number] - MG Order Info: 3016-3 - TSH Result Comment: Perf ormed at: - [facility] [address] [id number] Ecd: Candido Chavez PhD, Phone: [phone] Performed By: #### L 500.4100, L500.4050, L501.9520, L100.0100, L501.5200 #### [facility] [address] [place], [address] CK-MM 100 Normal 97-100 [facility] Comment on above: Order Comment: Order Date: 09/24/24 Order Info: 07-1 - CMP Order Info: [id number] - LIPID Order Info: [id number] - MG Order Info: 3016-3 - TSH Performed By: #### L 500.4100, L500.4050, L501.9520, L100.0100, L501.5200 #### [facility] [address] [place], [address] CK.MB [Mass/Vol] 0 ng/mL Normal 0-3 [facility] Comment on above: Order Comment: Order Date: 09/24/24 Order Info: 785-03 - CMP Order Info: [id number] - LIPID Order Info: [id number] - MG Order Info: 3015-3 - TSH Performed By: #### L 500.4100, L500.4050, L501.9520, L100.0100, L501.5200 #### [facility] [address] [place], [address] CPK,TOTAL,SERUM 101 U/L Normal 32-182 [facility] Comment on above: Order Comment: Order Date: 09/24/24 Order Info: 785-03 - CMP Order Info: - LIPID Order Info: [id number] - MG Order Info: 3 - TSH Performed By: #### L 500.4100, L500.4050, L501.9520, L100.0100, L501.5200 #### [facility] [address] [place], [place], [address] Macro I 0 Normal Not Observed [facility] Comment on above: Order Comment: Order Date: 09/24/24 Order Info: 785-03 - CMP Order Info: - LIPID Order Info: [id number] - MG Order Info: [id number] - TSH Performed By: #### L 500.4100, L500.4050, L501.9520, L100.0100, L501.5200 #### [facility] [address] [place], [place], [address] Macro II 0 Normal Not Observed [facility] Comment on above: Order Comment: Order Date: 09/24/24 Order Info: 785-03 - CMP Order Info: - LIPID Order Info: [id number] - MG Order Info: 3015-3 - TSH Performed By: #### L 500.4100, L500.4050, L501.9520, L100.0100, L501.5200 #### [facility] [address] [place], [address] CPK Total, Creatine Kinaseon 12-16-2024 CPK TOTAL 93 U/L Normal 24-195 [facility] Comment on above: Order Comment: Order Date: 12/16/24 Order Info: [id number] - CPKT Comments: R79.82 Performed By: #### L 501.3620 #### [facility] [address] [place], [address] Protein Electroph, Son 12-16 A/G RATIO Normal 0.7-2.0 [facility] Comment on above: Order Comment: Order Date: 09/24/24 Order Info: 785-1 - CMP Order Info: [id number] - LIPID Order Info: [id number] - MG Order Info: 3016-3 - TSH Result Comment: DUPL ICATE ORDERABLE Performed By: #### L 500.4100, L500.4050, L501.9520, L100.0100, L501.5200 #### [facility] [address] [place], [address] ALBUMIN Normal 3.2-5.6 [facility] Comment on above: Order Comment: Order Date: 09/24/24 Order Info: 785- - CMP Order Info: [id number] - LIPID Order Info: [id number] - MG Order Info: 3016-3 - TSH Result Comment: DUPL ICATE ORDERABLE Performed By: #### L 500.4100, L500.4050, L501.9520, L100.0100, L501.5200 #### [facility] [address] [place], [address] ALPHA-1 GLOBUL Normal 0.1-0.4 [facility] Comment on above: Order Comment: Order Date: 09/24/24 Order Info: 86-1 - CMP Order Info: [id number] - LIPID Order Info: [id number] - MG Order Info: 3016-3 - TSH Result Comment: DUPL ICATE ORDERABLE Performed By: #### L 500.4100, L500.4050, L501.9520, L100.0100, L501.5200 #### [facility] [address] [place], [address] ALPHA-2 GLOBUL Normal 0.4-1.2 [facility] Comment on above: Order Comment: Order Date: 09/24/24 Order Info: 785- - CMP Order Info: [id number] - LIPID Order Info: [id number] - MG Order Info: 3016-3 - TSH Result Comment: DUPL ICATE ORDERABLE Performed By: #### L 500.4100, L500.4050, L501.9520, L100.0100, L501.5200 #### [facility] [address] [place], [address] BETA GLOBULIN Normal [facility] Comment on above: Order Comment: Order Date: 09/24/24 Order Info: 785-03 - CMP Order Info: - LIPID Order Info: [id number] - MG Order Info: 3016-3 - TSH Result Comment: DUPL ICATE ORDERABLE Performed By: #### L 500.4100, L500.4050, L501.9520, L100.0100, L501.5200 #### [facility] [address] [place], [address] GAMMA GLOBULIN Normal 0.5-1.6 [facility] Comment on above: Order Comment: Order Date: 09/24/24 Order Info: 785-03 - CMP Order Info: - LIPID Order Info: [id number] - MG Order Info: 3016-3 - TSH Result Comment: DUPL ICATE ORDERABLE Performed By: #### L 500.4100, L500.4050, L501.9520, L100.0100, L501.5200 #### [facility] [address] [place], [address] GLOBULIN,TOTAL Normal 2.0-4.5 [facility] Comment on above: Order Comment: Order Date: 09/24/24 Order Info: 785- - CMP Order Info: [id number] - LIPID Order Info: [id number] - MG Order Info: 3015-3 - TSH Result Comment: DUPL ICATE ORDERABLE Performed By: #### L 500.4100, L500.4050, L501.9520, L100.0100, L501.5200 #### [facility] [address] [place], [address] M-SPIKE Normal 0.1 [facility] Comment on above: Order Comment: Order Date: 09/24/24 Order Info: 785- - CMP Order Info: - LIPID Order Info: [id number] - MG Order Info: [id number] - TSH Result Comment: DUPL ICATE ORDERABLE Performed By: #### L 500.4100, L500.4050, L501.9520, L100.0100, L501.5200 #### [facility] [address] [place], [address] PROTEIN,TOTAL Normal 6.0-8.5 [facility] Comment on above: Order Comment: Order Date: 09/24/24 Order Info: 86 - CMP Order Info: - LIPID Order Info: [id number] - MG Order Info: [id number] - TSH Result Comment: DUPL ICATE ORDERABLE Performed By: #### L 500.4100, L500.4050, L501.9520, L100.0100, L501.5200 #### [facility] [address] [place], [address] CBC W/Diff, Automatedon 10-0 -2024 Absolute Lymph 2.10 X10 3/uL Normal 0.83-4.51 [facility] Comment on above: Order Comment: Order Date: 09/24/24 Order Info: 0786- - CMP Order Info: [id number] - LIPID Order Info: [id number] - MG Order Info: 3 - TSH Performed By: #### L 500.4100, L500.4050, L501.9520, L100.0100, L501.5200 #### [facility] [address] [place], [address] Absolute Neut 6.0 X10 3/uL Normal 2.0-7.7 [facility] Comment on above: Order Comment: Order Date: 09/24/24 Order Info: 0786-1 - CMP Order Info: [id number] - LIPID Order Info: [id number] - MG Order Info: 3016-3 - TSH Performed By: #### L 500.4100, L500.4050, L501.9520, L100.0100, L501.5200 #### [facility] [address] [place], [address] Basophils/100 WBC (Bld) 0.5 % Normal 0-1 [facility] Comment on above: Order Comment: Order Date: 09/24/24 Order Info: 0786- - CMP Order Info: [id number] - LIPID Order Info: [id number] - MG Order Info: 3016-3 - TSH Performed By: #### L 500.4100, L500.4050, L501.9520, L100.0100, L501.5200 #### [facility] [address] [place], [address] Eosinophils/100 WBC (Bld) 1.6 % Normal 0-5 [facility] Comment on above: Order Comment: Order Date: 09/24/24 Order Info: 0786- - CMP Order Info: [id number] - LIPID Order Info: [id number] - MG Order Info: 3016-3 - TSH Performed By: #### L 500.4100, L500.4050, L501.9520, L100.0100, L501.5200 #### [facility] [address] [place], [address] Erythrocyte distribution width (RBC) [Ratio] 12.9 % Normal 11.6-14.6 [facility] Comment on above: Order Comment: Order Date: 09/24/24 Order Info: 0786-1 - CMP Order Info: - LIPID Order Info: [id number] - MG Order Info: 3 - TSH Performed By: #### L 500.4100, L500.4050, L501.9520, L100.0100, L501.5200 #### [facility] [address] [place], [address] Hematocrit (Bld) [Volume fraction] 39.9 % Normal 37-47 [facility] Comment on above: Order Comment: Order Date: 09/24/24 Order Info: 785-03 - CMP Order Info: - LIPID Order Info: [id number] - MG Order Info: [id number] - TSH Performed By: #### L 500.4100, L500.4050, L501.9520, L100.0100, L501.5200 #### [facility] [address] [place], [place], [address] Hemoglobin (Bld) [Mass/Vol] 13.3 g/dL Normal 12.0-15.0 [facility] Comment on above: Order Comment: Order Date: 09/24/24 Order Info: 785-03 - CMP Order Info: - LIPID Order Info: [id number] - MG Order Info: [id number] - TSH Performed By: #### L 500.4100, L500.4050, L501.9520, L100.0100, L501.5200 #### [facility] [address] [place], [address] IG% 0.500 Normal 0.0-0.9 [facility] Comment on above: Order Comment: Order Date: 09/24/24 Order Info: 785-03 - CMP Order Info: - LIPID Order Info: [id number] - MG Order Info: 3 - TSH Result Comment: IG% - Immature Granulocytes (promyelocytes, myelocytes and metamyelocytes) > 1% indicates that a LEFT SHIFT is Present. Performed By: #### L 500.4100, L500.4050, L501.9520, L100.0100, L501.5200 #### [facility] [address] [place], [address] Lymphocytes/100 WBC (Bld) 24.0 % Normal 19-41 [facility] Comment on above: Order Comment: Order Date: 09/24/24 Order Info: 0786-1 - CMP Order Info: [id number] - LIPID Order Info: [id number] - MG Order Info: 3016-3 - TSH Performed By: #### L 500.4100, L500.4050, L501.9520, L100.0100, L501.5200 #### [facility] [address] [place], [address] MCH (RBC) [Entitic mass] 29.2 pg Normal 27.0-32.0 [facility] Comment on above: Order Comment: Order Date: 09/24/24 Order Info: 07- - CMP Order Info: [id number] - LIPID Order Info: [id number] - MG Order Info: 3016-3 - TSH Performed By: #### L 500.4100, L500.4050, L501.9520, L100.0100, L501.5200 #### [facility] [address] [place], [address] MCHC (RBC) [Mass/Vol] 33.3 g/dL Normal 32-36 [facility] Comment on above: Order Comment: Order Date: 09/24/24 Order Info: 0786-1 - CMP Order Info: [id number] - LIPID Order Info: [id number] - MG Order Info: 3016-3 - TSH Performed By: #### L 500.4100, L500.4050, L501.9520, L100.0100, L501.5200 #### [facility] [address] [place], [address] MCV (RBC) [Entitic vol] 87.5 fL Normal 81-99 [facility] Comment on above: Order Comment: Order Date: 09/24/24 Order Info: 785-03 - CMP Order Info: - LIPID Order Info: [id number] - MG Order Info: 3016-3 - TSH Performed By: #### L 500.4100, L500.4050, L501.9520, L100.0100, L501.5200 #### [facility] [address] [place], [address] Monocytes/100 WBC (Bld) 4.9 % Normal 0-10 [facility] Comment on above: Order Comment: Order Date: 09/24/24 Order Info: 785-03 - CMP Order Info: - LIPID Order Info: [id number] - MG Order Info: 3015-3 - TSH Performed By: #### L 500.4100, L500.4050, L501.9520, L100.0100, L501.5200 #### [facility] [address] [place], [address] Neutrophils/100 WBC (Bld) 68.5 % Normal 47-70 [facility] Comment on above: Order Comment: Order Date: 09/24/24 Order Info: 785-03 - CMP Order Info: - LIPID Order Info: [id number] - MG Order Info: 3016-3 - TSH Performed By: #### L 500.4100, L500.4050, L501.9520, L100.0100, L501.5200 #### [facility] [address] [place], [address] Nucleated RBC (Bld) [#/Vol] 0 10*3/uL Normal 0-5 [facility] Comment on above: Order Comment: Order Date: 09/24/24 Order Info: 785-03 - CMP Order Info: [id number] - LIPID Order Info: [id number] - MG Order Info: 3016-3 - TSH Performed By: #### L 500.4100, L500.4050, L501.9520, L100.0100, L501.5200 #### [facility] [address] [place], [address] Platelet mean volume (Bld) [Entitic vol] 13.2 fL High 6.2-12.0 [facility] Comment on above: Order Comment: Order Date: 09/24/24 Order Info: 0786-1 - CMP Order Info: [id number] - LIPID Order Info: [id number] - MG Order Info: 3016-3 - TSH Performed By: #### L 500.4100, L500.4050, L501.9520, L100.0100, L501.5200 #### [facility] [address] [place], [address] Platelets (Bld) [#/Vol] 212 10*3/uL Normal 150-450 [facility] Comment on above: Order Comment: Order Date: 09/24/24 Order Info: 785-03 - CMP Order Info: [id number] - LIPID Order Info: [id number] - MG Order Info: 301-3 - TSH Performed By: #### L 500.4100, L500.4050, L501.9520, L100.0100, L501.5200 #### [facility] [address] [place], [address] RBC (Bld) [#/Vol] 4.56 10*6/uL Normal 4.2-5.4 [facility] Comment on above: Order Comment: Order Date: 09/24/24 Order Info: 0786- - CMP Order Info: [id number] - LIPID Order Info: [id number] - MG Order Info: 3016-3 - TSH Performed By: #### L 500.4100, L500.4050, L501.9520, L100.0100, L501.5200 #### [facility] [address] [place], [address] RDW SD 41.3 fl Normal 35.1-43.9 [facility] Comment on above: Order Comment: Order Date: 09/24/24 Order Info: 785-1 - CMP Order Info: [id number] - LIPID Order Info: [id number] - MG Order Info: 3016-3 - TSH Performed By: #### L 500.4100, L500.4050, L501.9520, L100.0100, L501.5200 #### [facility] [address] [place], [address] WBC (Bld) [#/Vol] 8.8 10*3/uL Normal 4.4-11.0 [facility] Comment on above: Order Comment: Order Date: 09/24/24 Order Info: 785-1 - CMP Order Info: - LIPID Order Info: [id number] - MG Order Info: 3015-3 - TSH Performed By: #### L 500.4100, L500.4050, L501.9520, L100.0100, L501.5200 #### [facility] [address] [place], [address] CRPon 12-15-2024 C-REACTIVE PROT 11.50 mg/L High 0.0-3.0 [facility] Comment on above: Order Comment: Order Date: 09/24/24 Order Info: 785- - CMP Order Info: [id number] - LIPID Order Info: [id number] - MG Order Info: 3015-3 - TSH Performed By: #### L 500.4100, L500.4050, L501.9520, L100.0100, L501.5200 #### [facility] [address] [place], [address] Comprehensive Metabolic Prof ilon 12-15-2024 Albumin [Mass/Vol] 4.1 g/dL Normal 3.4-4.8 [facility] Comment on above: Order Comment: Order Date: 09/24/24 Order Info: 86-1 - CMP Order Info: [id number] - LIPID Order Info: [id number] - MG Order Info: 3016-3 - TSH Performed By: #### L 500.4100, L500.4050, L501.9520, L100.0100, L501.5200 #### [facility] [address] [place], [address] Albumin/Globulin [Mass ratio] 1.2 {ratio} Normal 0.9-2.4 [facility] Comment on above: Order Comment: Order Date: 09/24/24 Order Info: 0786-1 - CMP Order Info: [id number] - LIPID Order Info: [id number] - MG Order Info: 3016-3 - TSH Performed By: #### L 500.4100, L500.4050, L501.9520, L100.0100, L501.5200 #### [facility] [address] [place], [address] ALK PHOS 139 U/L High 35-104 [facility] Comment on above: Order Comment: Order Date: 09/24/24 Order Info: 0786- - CMP Order Info: [id number] - LIPID Order Info: [id number] - MG Order Info: 3016-3 - TSH Performed By: #### L 500.4100, L500.4050, L501.9520, L100.0100, L501.5200 #### [facility] [address] [place], [address] ALT [Catalytic activity/Vol] 22 U/L Normal <=34 [facility] Comment on above: Order Comment: Order Date: 09/24/24 Order Info: 0786-1 - CMP Order Info: [id number] - LIPID Order Info: [id number] - MG Order Info: 3016-3 - TSH Performed By: #### L 500.4100, L500.4050, L501.9520, L100.0100, L501.5200 #### [facility] [address] [place], [address] AST [Catalytic activity/Vol] 27 U/L Normal <=31 [facility] Comment on above: Order Comment: Order Date: 09/24/24 Order Info: 785-1 - CMP Order Info: [id number] - LIPID Order Info: [id number] - MG Order Info: 301-3 - TSH Performed By: #### L 500.4100, L500.4050, L501.9520, L100.0100, L501.5200 #### [facility] [address] [place], [address] Bilirubin [Mass/Vol] 0.35 mg/dL Normal 0.00-1.30 [facility] Comment on above: Order Comment: Order Date: 09/24/24 Order Info: 785- - CMP Order Info: - LIPID Order Info: [id number] - MG Order Info: 3 - TSH Performed By: #### L 500.4100, L500.4050, L501.9520, L100.0100, L501.5200 #### [facility] [address] [place], [address] BUN/CRE 24.1 RATIO High 10-20 [facility] Comment on above: Order Comment: Order Date: 09/24/24 Order Info: 785-03 - CMP Order Info: - LIPID Order Info: [id number] - MG Order Info: 3015-3 - TSH Performed By: #### L 500.4100, L500.4050, L501.9520, L100.0100, L501.5200 #### [facility] [address] [place], [address] Calcium [Mass/Vol] 10.1 mg/dL Normal 7.6-11.0 [facility] Comment on above: Order Comment: Order Date: 09/24/24 Order Info: 785-1 - CMP Order Info: [id number] - LIPID Order Info: [id number] - MG Order Info: 3016-3 - TSH Performed By: #### L 500.4100, L500.4050, L501.9520, L100.0100, L501.5200 #### [facility] [address] [place], [address] Chloride [Moles/Vol] 104 mmol/L Normal 98-108 [facility] Comment on above: Order Comment: Order Date: 09/24/24 Order Info: 0786-1 - CMP Order Info: [id number] - LIPID Order Info: [id number] - MG Order Info: 3016-3 - TSH Performed By: #### L 500.4100, L500.4050, L501.9520, L100.0100, L501.5200 #### [facility] [address] [place], [address] CO2 [Moles/Vol] 24.2 mmol/L Normal 21.0-32.0 [facility] Comment on above: Order Comment: Order Date: 09/24/24 Order Info: 785-1 - CMP Order Info: [id number] - LIPID Order Info: [id number] - MG Order Info: 3016-3 - TSH Performed By: #### L 500.4100, L500.4050, L501.9520, L100.0100, L501.5200 #### [facility] [address] [place], [address] Creatinine [Mass/Vol] 1.15 mg/dL Normal 0.70-1.20 [facility] Comment on above: Order Comment: Order Date: 09/24/24 Order Info: 86-1 - CMP Order Info: [id number] - LIPID Order Info: [id number] - MG Order Info: 3016-3 - TSH Performed By: #### L 500.4100, L500.4050, L501.9520, L100.0100, L501.5200 #### [facility] [address] [place], [address] GAP 12 Normal 5-15 [facility] Comment on above: Order Comment: Order Date: 09/24/24 Order Info: 0786-1 - CMP Order Info: [id number] - LIPID Order Info: [id number] - MG Order Info: 3016-3 - TSH Performed By: #### L 500.4100, L500.4050, L501.9520, L100.0100, L501.5200 #### [facility] [address] [place], [address] GFR/1.73 sq M.predicted among non-blacks MDRD (S/P/Bld) [Vol rate/Area] 52 mL/min/{1.73_m2} Low >60 [facility] Comment on above: Order Comment: Order Date: 09/24/24 Order Info: 0786-1 - CMP Order Info: [id number] - LIPID Order Info: [id number] - MG Order Info: 3015-3 - TSH Result Comment: mL/m in/1.73m2 CKD-EPI Creatinine Equation (2020) Performed By: #### L 500.4100, L500.4050, L501.9520, L100.0100, L501.5200 #### [facility] [address] [place], [address] Globulin (S) [Mass/Vol] 3.5 g/dL Normal 2.2-4.2 [facility] Comment on above: Order Comment: Order Date: 09/24/24 Order Info: 0786- - CMP Order Info: [id number] - LIPID Order Info: [id number] - MG Order Info: 3015-3 - TSH Performed By: #### L 500.4100, L500.4050, L501.9520, L100.0100, L501.5200 #### [facility] [address] [place], [address] Glucose [Mass/Vol] 109 mg/dL High 70-99 [facility] Comment on above: Order Comment: Order Date: 09/24/24 Order Info: 0786-1 - CMP Order Info: [id number] - LIPID Order Info: [id number] - MG Order Info: 3015-3 - TSH Performed By: #### L 500.4100, L500.4050, L501.9520, L100.0100, L501.5200 #### [facility] [address] [place], [address] Potassium [Moles/Vol] 4.0 mmol/L Normal 3.3-5.1 [facility] Comment on above: Order Comment: Order Date: 09/24/24 Order Info: 0786-1 - CMP Order Info: [id number] - LIPID Order Info: [id number] - MG Order Info: 3016-3 - TSH Performed By: #### L 500.4100, L500.4050, L501.9520, L100.0100, L501.5200 #### [facility] [address] [place], [address] Sodium [Moles/Vol] 140 mmol/L Normal 133-145 [facility] Comment on above: Order Comment: Order Date: 09/24/24 Order Info: 07 - CMP Order Info: [id number] - LIPID Order Info: [id number] - MG Order Info: 3016-3 - TSH Performed By: #### L 500.4100, L500.4050, L501.9520, L100.0100, L501.5200 #### [facility] [address] [place], [address] T PROT 7.6 g/dL Normal 5.9-8.4 [facility] Comment on above: Order Comment: Order Date: 09/24/24 Order Info: 0786-1 - CMP Order Info: [id number] - LIPID Order Info: [id number] - MG Order Info: 3016-3 - TSH Performed By: #### L 500.4100, L500.4050, L501.9520, L100.0100, L501.5200 #### [facility] [address] [place], [address] Urea nitrogen [Mass/Vol] 28 mg/dL High 4-19 [facility] Comment on above: Order Comment: Order Date: 09/24/24 Order Info: 785-1 - CMP Order Info: [id number] - LIPID Order Info: [id number] - MG Order Info: 3016-3 - TSH Performed By: #### L 500.4100, L500.4050, L501.9520, L100.0100, L501.5200 #### [facility] [address] [place], [address] Erythrocyte Sed Rateon 12-15 SED RATE 33 mm/hr High 0-30 [facility] Comment on above: Order Comment: Order Date: 09/24/24 Order Info: 785-03 - CMP Order Info: - LIPID Order Info: [id number] - MG Order Info: 3 - TSH Performed By: #### L 500.4100, L500.4050, L501.9520, L100.0100, L501.5200 #### [facility] [address] [place], [address] Partial Thromboplast Timeon 12-15-2024 aPTT Coag (Bld) [Time] 25.2 s Normal 24.1-36.2 [facility] Comment on above: Order Comment: Order Date: 09/24/24 Order Info: 785-03 - CMP Order Info: [id number] - LIPID Order Info: [id number] - MG Order Info: 3015-3 - TSH Performed By: #### L 500.4100, L500.4050, L501.9520, L100.0100, L501.5200 #### [facility] [address] [place], [address] Prothrombin Time w/INRon INR Coag (PPP) [Relative time] 1.0 {INR} Normal [facility] Comment on above: Order Comment: Order Date: 09/24/24 Order Info: 0786-1 - CMP Order Info: [id number] - LIPID Order Info: [id number] - MG Order Info: 3015-3 - TSH Performed By: #### L 500.4100, L500.4050, L501.9520, L100.0100, L501.5200 #### [facility] [address] [place], [address] PT Coag (PPP) [Time] 13.1 s Normal 11.7-14.9 [facility] Comment on above: Order Comment: Order Date: 09/24/24 Order Info: 0786-1 - CMP Order Info: [id number] - LIPID Order Info: [id number] - MG Order Info: 3016-3 - TSH Performed By: #### L 500.4100, L500.4050, L501.9520, L100.0100, L501.5200 #### [facility] [address] [place], [address] Bone density reportOrdered B y: Alex Barber on 10-11-2024 Study report Skeletal system DXA [facility] Imaging Services [address] [place], [place] [address] Dexa Bone Density Study MR#: [id number] Acct: [id number] Name: JALEESA BASHIR BECKY Rep #: [id number] : 1955 F 69 From: Tito Barber MD PCP: Dr. 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 Postmenopausal. TECHNIQUE: DEXA BONE DENSITY STUDY COMPARISON: None FINDINGS: BMD and T-SCORES Lumbar spine: 0.981 g/cm2, T-score -0.6 Levels: L1 through L4 Left femoral neck: 0.647 g/cm2, T-score -1.8 Femoral neck comparison data not recommended for monitoring change. Left total hip: 0.957 g/cm2, T-score 0.1 Change from prior: Loss of 1%. Right femoral neck: 0.679 g/cm2, T-score -1.5 Femoral neck comparison data not recommended for monitoring change. Right total hip: 0.911 g/cm2, T-score -0.3 Change from prior: Loss of 6.5%. The World Health Organization has defined the following categories based on bonedensity: Normal bone density: T-score equal to or greater than -1.0 Osteopenia: T-score between -1.0 and -2.5 Osteoporosis: T-score equal to or less than -2.5 The patient does meet the pharmacological treatment recommendations for prevention of osteoporosis. BD/Dexa Bone Density Study IMPRESSION: OSTEOPENIA. Recommend follow-up as clinically warranted. Reading Location: [id number] CC: PAMELA Patel; Dr. Mason Lagunas MD ~ Rehabilitation Counselor: Signed [facility] Dexa Bone Density Studyon Dexa Bone Density Study [facility] Imaging Services [address] [place] [id number] Dexa Bone Density Study MR#: [id number] Acct: [id number] Name: JALEESA BASHIR Rep #: [id number] : 1955 F 69 From: Alex montiel MD PCP: Dr. Mason Lagunas MD Status: [facility] Study: Dexa Bone Density Study Date of Exam: 10/07/24 Exam# [id number] Ordering Dr: Dena Patel NP PROCEDURE: DEXA BONE DENSITY STUDY 10/07/2024 REASON FOR EXAM: F, age 69 y/o . Postmenopausal. TECHNIQUE: DEXA BONE DENSITY STUDY COMPARISON: None FINDINGS: BMD and T-SCORES Lumbar spine: 0.981 g/cm2, T-score -0.6 Levels: L1 through L4 Left femoral neck: 0.647 g/cm2, T-score -1.8 Femoral neck comparison data not recommended for monitoring change. Left total hip: 0.957 g/cm2, T-score 0.1 Change from prior: Loss of 1%. Right femoral neck: 0.679 g/cm2, T-score -1.5 Femoral neck comparison data not recommended for monitoring change. Right total hip: 0.911 g/cm2, T-score -0.3 Change from prior: Loss of 6.5%. The World Health Organization has defined the following categories based on bone density: Normal bone density: T-score equal to or greater than -1.0 Osteopenia: T-score between -1.0 and -2.5 Osteoporosis: T-score equal to or less than -2.5 The patient does meet the pharmacological treatment recommendations for prevention of osteoporosis. BD/Dexa Bone Density Study IMPRESSION: OSTEOPENIA. Recommend follow-up as clinically warranted. Reading Location: [id number] CC: PAMELA Patel; Dr. Mason Lagunas MD Rehabilitation Counselor: Signed Normal [facility] Absolute lymphocyte countOrd ered By: Mason Lagunas on 10-01-2024 Lymphocytes Auto (Unsp spec) [#/Vol] 2.47 10*3/uL 0.83-4.51 [facility] Absolute neutrophil countOrd ered By: Mason Lagunas on 10-01-2024 Neutrophils (Bld) [#/Vol] 5.5 10*3/uL 2.0-7.7 [facility] Anion gap in Serum or Plasma Ordered By: Mason Lagunas on 10-01-2024 Anion gap [Moles/Vol] 13 mmol/L 5-15 [facility] Automated lymphocyte count a s percentage of total leukocytesOrdered By: Mason Lagunas on 10-01-2024 Lymphocytes/100 WBC Auto (Unsp spec) 28.5 % 19-41 [facility] BUN/creatinine ratioOrdered By: Mason Lagunas on 10-01-2024 Urea nitrogen/Creatinine [Mass ratio] 16.9 mg/mg 10-20 [facility] Basophil percentageOrdered B y: Mason Lagunas on 10-01-2024 Basophils/100 WBC (Bld) 0.6 % 0-1 [facility] Bilirubin, totalOrdered By: Mason Lagunas on 10-01-2024 Bilirubin [Mass/Vol] 0.27 mg/dL 0.00-1.30 [facility] CBC W/Diff, Automatedon - Absolute Lymph 2.47 X10 3/uL Normal 0.83-4.51 [facility] Comment on above: Order Comment: Order Date: 09/24/24 Order Info: 0184-1 - CBCD Performed By: #### L 500.4100, L500.4050, L501.9520, L100.0100, L501.5200 #### [facility] [address] [place], [address] Absolute Neut 5.5 X10 3/uL Normal 2.0-7.7 [facility] Comment on above: Order Comment: Order Date: 09/24/24 Order Info: 0184- - CBCD Performed By: #### L 500.4100, L500.4050, L501.9520, L100.0100, L501.5200 #### [facility] [address] [place], [address] Basophils/100 WBC (Bld) 0.6 % Normal 0-1 [facility] Comment on above: Order Comment: Order Date: 09/24/24 Order Info: 0184- - CBCD Performed By: #### L 500.4100, L500.4050, L501.9520, L100.0100, L501.5200 #### [facility] [address] [place], [address] Eosinophils/100 WBC (Bld) 1.7 % Normal 0-5 [facility] Comment on above: Order Comment: Order Date: 09/24/24 Order Info: 0184-1 - CBCD Performed By: #### L 500.4100, L500.4050, L501.9520, L100.0100, L501.5200 #### [facility] [address] [place], [address] Erythrocyte distribution width (RBC) [Ratio] 13.1 % Normal 11.6-14.6 [facility] Comment on above: Order Comment: Order Date: 09/24/24 Order Info: 0184-1 - CBCD Performed By: #### L 500.4100, L500.4050, L501.9520, L100.0100, L501.5200 #### [facility] [address] [place], [address] Hematocrit (Bld) [Volume fraction] 40.1 % Normal 37-47 [facility] Comment on above: Order Comment: Order Date: 09/24/24 Order Info: 0184-1 - CBCD Performed By: #### L 500.4100, L500.4050, L501.9520, L100.0100, L501.5200 #### [facility] [address] [facility], [address] Hemoglobin (Bld) [Mass/Vol] 13.3 g/dL Normal 12.0-15.0 [facility] Comment on above: Order Comment: Order Date: 09/24/24 Order Info: 0184-1 - CBCD Performed By: #### L 500.4100, L500.4050, L501.9520, L100.0100, L501.5200 #### [facility] [address] [place], [address] IG% 0.200 Normal 0.0-0.9 [facility] Comment on above: Order Comment: Order Date: 09/24/24 Order Info: 0184-1 - CBCD Result Comment: IG% - Immature Granulocytes (promyelocytes, myelocytes and metamyelocytes) > 1% indicates that a LEFT SHIFT is Present. Performed By: #### L 500.4100, L500.4050, L501.9520, L100.0100, L501.5200 #### [facility] [address] [place], [address] Lymphocytes/100 WBC (Bld) 28.5 % Normal 19-41 [facility] Comment on above: Order Comment: Order Date: 09/24/24 Order Info: 0184-1 - CBCD Performed By: #### L 500.4100, L500.4050, L501.9520, L100.0100, L501.5200 #### [facility] [address] [place], [address] MCH (RBC) [Entitic mass] 29.0 pg Normal 27.0-32.0 [facility] Comment on above: Order Comment: Order Date: 09/24/24 Order Info: 0184- - CBCD Performed By: #### L 500.4100, L500.4050, L501.9520, L100.0100, L501.5200 #### [facility] [address] [place], [address] MCHC (RBC) [Mass/Vol] 33.2 g/dL Normal 32-36 [facility] Comment on above: Order Comment: Order Date: 09/24/24 Order Info: 0184- - CBCD Performed By: #### L 500.4100, L500.4050, L501.9520, L100.0100, L501.5200 #### [facility] [address] [place], [address] MCV (RBC) [Entitic vol] 87.6 fL Normal 81-99 [facility] Comment on above: Order Comment: Order Date: 09/24/24 Order Info: 0184- - CBCD Performed By: #### L 500.4100, L500.4050, L501.9520, L100.0100, L501.5200 #### [facility] [address] [place], [address] Monocytes/100 WBC (Bld) 6.0 % Normal 0-10 [facility] Comment on above: Order Comment: Order Date: 09/24/24 Order Info: 0184-1 - CBCD Performed By: #### L 500.4100, L500.4050, L501.9520, L100.0100, L501.5200 #### [facility] [address] [place], [address] Neutrophils/100 WBC (Bld) 63.0 % Normal 47-70 [facility] Comment on above: Order Comment: Order Date: 09/24/24 Order Info: 018- - CBCD Performed By: #### L 500.4100, L500.4050, L501.9520, L100.0100, L501.5200 #### [facility] [address] [place], [address] Nucleated RBC (Bld) [#/Vol] 0 10*3/uL Normal 0-5 [facility] Comment on above: Order Comment: Order Date: 09/24/24 Order Info: 018- - CBCD Performed By: #### L 500.4100, L500.4050, L501.9520, L100.0100, L501.5200 #### [facility] [address] [place], [address] Platelet mean volume (Bld) [Entitic vol] 13.3 fL High 6.2-12.0 [facility] Comment on above: Order Comment: Order Date: 09/24/24 Order Info: 018- - CBCD Performed By: #### L 500.4100, L500.4050, L501.9520, L100.0100, L501.5200 #### [facility] [address] [place], [address] Platelets (Bld) [#/Vol] 180 10*3/uL Normal 150-450 [facility] Comment on above: Order Comment: Order Date: 09/24/24 Order Info: 0184-1 - CBCD Performed By: #### L 500.4100, L500.4050, L501.9520, L100.0100, L501.5200 #### [facility] [address] [place], [address] RBC (Bld) [#/Vol] 4.58 10*6/uL Normal 4.2-5.4 [facility] Comment on above: Order Comment: Order Date: 09/24/24 Order Info: 0184-1 - CBCD Performed By: #### L 500.4100, L500.4050, L501.9520, L100.0100, L501.5200 #### [facility] [address] [place], [place], [address] (860) RDW SD 41.5 fl Normal 35.1-43.9 [facility] Comment on above: Order Comment: Order Date: 09/24/24 Order Info: 0184-1 - CBCD Performed By: #### L 500.4100, L500.4050, L501.9520, L100.0100, L501.5200 #### [facility] [address] [place], [address] WBC (Bld) [#/Vol] 8.7 10*3/uL Normal 4.4-11.0 [facility] Comment on above: Order Comment: Order Date: 09/24/24 Order Info: 0184-1 - CBCD Performed By: #### L 500.4100, L500.4050, L501.9520, L100.0100, L501.5200 #### [facility] [address] [place], [place], [address] Calculated very low density lipoprotein (VLDL) cholesterol measurementOrdered By: Mason Lagunas on 10-01-2024 Calculated very low density lipoprotein (VLDL) cholesterol measurement 28 mg/dL 5-40 [facility] Carbon dioxide, total [Moles /volume] in Central venous bloodOrdered By: Mason Lagunas on 10-01-2024 CO2 [Moles/Vol] 21.8 mmol/L 21.0-32.0 [facility] Chloride assayOrdered By: Celestine Lagunas on 10-01-2024 Chloride [Moles/Vol] 105 mmol/L 98-108 [facility] Comprehensive Metabolic Prof ilon 10-01-2024 Albumin [Mass/Vol] 4.2 g/dL Normal 3.4-4.8 [facility] Comment on above: Order Comment: Order Date: 09/24/24 Order Info: 785-1 - CMP Order Info: [id number] - LIPID Order Info: [id number] - MG Order Info: 3015-3 - TSH Performed By: #### L 500.4100, L500.4050, L501.9520, L100.0100, L501.5200 #### [facility] [address] [place], [address] Albumin/Globulin [Mass ratio] 1.2 {ratio} Normal 0.9-2.4 [facility] Comment on above: Order Comment: Order Date: 09/24/24 Order Info: 785- - CMP Order Info: [id number] - LIPID Order Info: [id number] - MG Order Info: 3 - TSH Performed By: #### L 500.4100, L500.4050, L501.9520, L100.0100, L501.5200 #### [facility] [address] [place], [address] ALK PHOS 148 U/L High 35-104 [facility] Comment on above: Order Comment: Order Date: 09/24/24 Order Info: 785-03 - CMP Order Info: [id number] - LIPID Order Info: [id number] - MG Order Info: 3 - TSH Performed By: #### L 500.4100, L500.4050, L501.9520, L100.0100, L501.5200 #### [facility] [address] [place], [address] ALT [Catalytic activity/Vol] 21 U/L Normal <=34 [facility] Comment on above: Order Comment: Order Date: 09/24/24 Order Info: 86-1 - CMP Order Info: [id number] - LIPID Order Info: [id number] - MG Order Info: 3 - TSH Performed By: #### L 500.4100, L500.4050, L501.9520, L100.0100, L501.5200 #### [facility] [address] [place], [address] AST [Catalytic activity/Vol] 27 U/L Normal <=31 [facility] Comment on above: Order Comment: Order Date: 09/24/24 Order Info: 0786-1 - CMP Order Info: [id number] - LIPID Order Info: [id number] - MG Order Info: 3016-3 - TSH Performed By: #### L 500.4100, L500.4050, L501.9520, L100.0100, L501.5200 #### [facility] [address] [place], [address] Bilirubin [Mass/Vol] 0.27 mg/dL Normal 0.00-1.30 [facility] Comment on above: Order Comment: Order Date: 09/24/24 Order Info: 785-03 - CMP Order Info: [id number] - LIPID Order Info: [id number] - MG Order Info: 3016-3 - TSH Performed By: #### L 500.4100, L500.4050, L501.9520, L100.0100, L501.5200 #### [facility] [address] [place], [address] BUN/CRE 16.9 RATIO Normal 10-20 [facility] Comment on above: Order Comment: Order Date: 09/24/24 Order Info: 07 - CMP Order Info: [id number] - LIPID Order Info: [id number] - MG Order Info: 3016-3 - TSH Performed By: #### L 500.4100, L500.4050, L501.9520, L100.0100, L501.5200 #### [facility] [address] [place], [address] Calcium [Mass/Vol] 10.0 mg/dL Normal 7.6-11.0 [facility] Comment on above: Order Comment: Order Date: 09/24/24 Order Info: 785-1 - CMP Order Info: [id number] - LIPID Order Info: [id number] - MG Order Info: 3015-3 - TSH Performed By: #### L 500.4100, L500.4050, L501.9520, L100.0100, L501.5200 #### [facility] [address] [place], [address] Chloride [Moles/Vol] 105 mmol/L Normal 98-108 [facility] Comment on above: Order Comment: Order Date: 09/24/24 Order Info: 785- - CMP Order Info: [id number] - LIPID Order Info: [id number] - MG Order Info: 3 - TSH Performed By: #### L 500.4100, L500.4050, L501.9520, L100.0100, L501.5200 #### [facility] [address] [place], [address] CO2 [Moles/Vol] 21.8 mmol/L Normal 21.0-32.0 [facility] Comment on above: Order Comment: Order Date: 09/24/24 Order Info: 785-03 - CMP Order Info: [id number] - LIPID Order Info: [id number] - MG Order Info: 3 - TSH Performed By: #### L 500.4100, L500.4050, L501.9520, L100.0100, L501.5200 #### [facility] [address] [place], [address] Creatinine [Mass/Vol] 1.10 mg/dL Normal 0.70-1.20 [facility] Comment on above: Order Comment: Order Date: 09/24/24 Order Info: 785-1 - CMP Order Info: [id number] - LIPID Order Info: [id number] - MG Order Info: 3016-3 - TSH Performed By: #### L 500.4100, L500.4050, L501.9520, L100.0100, L501.5200 #### [facility] [address] [place], [address] GAP 13 Normal 5-15 [facility] Comment on above: Order Comment: Order Date: 09/24/24 Order Info: 0786-1 - CMP Order Info: [id number] - LIPID Order Info: [id number] - MG Order Info: 3016-3 - TSH Performed By: #### L 500.4100, L500.4050, L501.9520, L100.0100, L501.5200 #### [facility] [address] [place], [address] GFR/1.73 sq M.predicted among non-blacks MDRD (S/P/Bld) [Vol rate/Area] 55 mL/min/{1.73_m2} Low >60 [facility] Comment on above: Order Comment: Order Date: 09/24/24 Order Info: 785-1 - CMP Order Info: [id number] - LIPID Order Info: [id number] - MG Order Info: 3016-3 - TSH Result Comment: mL/m in/1.73m2 CKD-EPI Creatinine Equation (2020) Performed By: #### L 500.4100, L500.4050, L501.9520, L100.0100, L501.5200 #### [facility] [address] [place], [address] Globulin (S) [Mass/Vol] 3.6 g/dL Normal 2.2-4.2 [facility] Comment on above: Order Comment: Order Date: 09/24/24 Order Info: 07-1 - CMP Order Info: [id number] - LIPID Order Info: [id number] - MG Order Info: 3016-3 - TSH Performed By: #### L 500.4100, L500.4050, L501.9520, L100.0100, L501.5200 #### [facility] [address] [place], [address] Glucose [Mass/Vol] 104 mg/dL High 70-99 [facility] Comment on above: Order Comment: Order Date: 09/24/24 Order Info: 86-1 - CMP Order Info: [id number] - LIPID Order Info: [id number] - MG Order Info: 3016-3 - TSH Performed By: #### L 500.4100, L500.4050, L501.9520, L100.0100, L501.5200 #### [facility] [address] [place], [address] Potassium [Moles/Vol] 4.0 mmol/L Normal 3.3-5.1 [facility] Comment on above: Order Comment: Order Date: 09/24/24 Order Info: 785-1 - CMP Order Info: [id number] - LIPID Order Info: [id number] - MG Order Info: 3016-3 - TSH Performed By: #### L 500.4100, L500.4050, L501.9520, L100.0100, L501.5200 #### [facility] [address] [place], [address] Sodium [Moles/Vol] 141 mmol/L Normal 133-145 [facility] Comment on above: Order Comment: Order Date: 09/24/24 Order Info: 86-1 - CMP Order Info: [id number] - LIPID Order Info: [id number] - MG Order Info: 3016-3 - TSH Performed By: #### L 500.4100, L500.4050, L501.9520, L100.0100, L501.5200 #### [facility] [address] [place], [address] T PROT 7.8 g/dL Normal 5.9-8.4 [facility] Comment on above: Order Comment: Order Date: 09/24/24 Order Info: 0786-1 - CMP Order Info: [id number] - LIPID Order Info: [id number] - MG Order Info: 3016-3 - TSH Performed By: #### L 500.4100, L500.4050, L501.9520, L100.0100, L501.5200 #### [facility] [address] [place], [place], [address] Urea nitrogen [Mass/Vol] 19 mg/dL Normal 4-19 [facility] Comment on above: Order Comment: Order Date: 09/24/24 Order Info: 0786-1 - CMP Order Info: [id number] - LIPID Order Info: [id number] - MG Order Info: 3016-3 - TSH Performed By: #### L 500.4100, L500.4050, L501.9520, L100.0100, L501.5200 #### [facility] [address] [place], [place], [address] Eosinophil percentageOrdered By: Mason Lagunas on 10-01-2024 Eosinophils/100 WBC (Bld) 1.7 % 0-5 [facility] Erythrocyte distribution wid th ratioOrdered By: Mason Lagunas on 10-01-2024 Erythrocyte distribution width (RBC) [Ratio] 13.1 % 11.6-14.6 [facility] Erythrocyte distribution wid th standard deviationOrdered By: Mason Lagunas on 10-01-2024 Erythrocyte distribution width (RBC) [Ratio] 41.5 fl 35.1-43.9 [facility] Glomerular filtration rate ( GFR) estimation/1.73 sq m using serum, plasma, or whole bOrdered By: Mason Lagnuas on 10-01-2024 GFR/1.73 sq M.predicted among non-blacks MDRD (S/P/Bld) [Vol rate/Area] 55 mL/min/{1.73_m2} Low >60 [facility] Comment on above: mL/min/1.73m2 CKD-EP I Creatinine Equation (2020) Hematocrit Auto (Bld) [Volum e fraction]Ordered By: Mason Lagunas on 10-01-2024 Hematocrit (Bld) [Volume fraction] 40.1 % 37-47 [facility] Hemoglobin measurementOrdere d By: Mason Lagunas on 10-01-2024 Hemoglobin (Bld) [Mass/Vol] 13.3 g/dL 12.0-15.0 [facility] Immature granulocytes/100 WB C Auto (Bld)Ordered By: Mason Lagunas on 10-01-2024 Immature granulocytes/100 WBC (Bld) 0.200 % 0.0-0.9 [facility] Comment on above: IG% - Immature Granu locytes (promyelocytes, myelocytes and metamyelocytes) > 1% indicates that a LEFT SHIFT is Present. LDL calc ser/plasOrdered By: Mason Lagunas on 10-01-2024 Cholesterol in LDL [Mass/Vol] 70 mg/dL [facility] Comment on above: Jviwyuikra=764-042 m g/dL & Higher Dggt=810 mg/dL or greater Laboratory - Chemistry and C hemistry - challengeOrdered By: Mason Lagunas on 10-01-2024 AST [Catalytic activity/Vol] 27 U/L <32 [facility] Lipid Profileon 10-01-2024 CHOL:HDL 2.62 Normal [facility] Comment on above: Order Comment: Order Date: 09/24/24 Order Info: 0786-1 - CMP Order Info: [id number] - LIPID Order Info: [id number] - MG Order Info: 3016-3 - TSH Performed By: #### L 500.4100, L500.4050, L501.9520, L100.0100, L501.5200 #### [facility] [address] [place], [address] Cholesterol [Mass/Vol] 158 mg/dL Normal <=200 [facility] Comment on above: Order Comment: Order Date: 09/24/24 Order Info: 0786-1 - CMP Order Info: [id number] - LIPID Order Info: [id number] - MG Order Info: 3016-3 - TSH Result Comment: Chol esterol level, Desirable <200 mg/dL Borderline high cholesterol 200-239 mg/dL High cholesterol >=240 mg/dL Recommendations of the NCEP Adult Treatment Panel for the following risk-cutoff thresholds for the [place] population. Performed By: #### L 500.4100, L500.4050, L501.9520, L100.0100, L501.5200 #### [facility] [address] [place], [address] Cholesterol in HDL [Mass/Vol] 60 mg/dL Normal [facility] Comment on above: Order Comment: Order Date: 09/24/24 Order Info: 0786- - CMP Order Info: [id number] - LIPID Order Info: [id number] - MG Order Info: 3 - TSH Result Comment: Sigrid onal Cholesterol Education Program (NCEP) guidelines: <40 mg/dL: Low HDL-cholesterol (major risk factor for CHD) >= 60 mg/dL: High HDL-cholesterol (negative risk factor for CHD) HDL-cholesterol is affected by a number of factors, e.g. smoking, exercise, hormones, sex and age. Performed By: #### L 500.4100, L500.4050, L501.9520, L100.0100, L501.5200 #### [facility] [address] [place], [address] Cholesterol in LDL [Mass/Vol] 70 mg/dL Normal [facility] Comment on above: Order Comment: Order Date: 09/24/24 Order Info: 0786 - CMP Order Info: [id number] - LIPID Order Info: [id number] - MG Order Info: 3015-05 - TSH Result Comment: Bord aouyja=595-437 mg/dL Higher Nivh=862 mg/dL or greater Performed By: #### L 500.4100, L500.4050, L501.9520, L100.0100, L501.5200 #### [facility] [address] [place], [address] Cholesterol in VLDL [Mass/Vol] 28 mg/dL Normal 5-40 [facility] Comment on above: Order Comment: Order Date: 09/24/24 Order Info: 0786- - CMP Order Info: [id number] - LIPID Order Info: [id number] - MG Order Info: 3 - TSH Performed By: #### L 500.4100, L500.4050, L501.9520, L100.0100, L501.5200 #### [facility] [address] [place], [place], [address] Triglyceride [Mass/Vol] 138 mg/dL Normal [facility] Comment on above: Order Comment: Order Date: 09/24/24 Order Info: 07 - CMP Order Info: [id number] - LIPID Order Info: [id number] - MG Order Info: 3016-3 - TSH Result Comment: The drugs N-Acetylcysteine and Metamizole may falsely depress this assay. Normal range: <150 mg/dL Borderline High: 150-199 mg/dL High: 200-499 mg/dL Very High: >500 mg/dL Performed By: #### L 500.4100, L500.4050, L501.9520, L100.0100, L501.5200 #### [facility] [address] [place], [place], [address] MCV (mean corpuscular volume ) determinationOrdered By: Mason Lagunas on 10-01-2024 MCV (RBC) [Entitic vol] 87.6 fL 81-99 [facility] Magnesiumon 10-01-2024 Magnesium [Mass/Vol] 1.9 mg/dL Normal 1.5-2.2 [facility] Comment on above: Order Comment: Order Date: 09/24/24 Order Info: 07 - CMP Order Info: [id number] - LIPID Order Info: [id number] - MG Order Info: 3016-3 - TSH Performed By: #### L 500.4100, L500.4050, L501.9520, L100.0100, L501.5200 #### [facility] [address] [place], [address] Magnesium measurement (mass/ volume)Ordered By: Mason Lagunas on 10-01-2024 Magnesium (Unsp spec) [Mass/Vol] 1.9 mg/dL 1.5-2.2 [facility] Mean corpuscular hemoglobin (MCH) determinationOrdered By: Mason Lagunas on 10-01-2024 MCH (RBC) [Entitic mass] 29.0 pg 27.0-32.0 [facility] Mean corpuscular hemoglobin concentration (MCHC) determinationOrdered By: Mason Lagunas on 10-01-2024 MCHC (RBC) [Mass/Vol] 33.2 g/dL 32-36 [facility] Mean platelet volume determi nationOrdered By: Mason Lagunas on 10-01-2024 Platelet mean volume (Bld) [Entitic vol] 13.3 fL High 6.2-12.0 [facility] Microalb:Creat Ratio,Random URon 10-01-2024 Creatinine [Mass/Vol] 51.90 mg/dL Normal 28.00- 217.0 0 [facility] Comment on above: Order Comment: Order Date: 09/24/24 Order Info: 07- - CMP Order Info: [id number] - LIPID Order Info: [id number] - MG Order Info: 3016-3 - TSH Performed By: #### L 500.4100, L500.4050, L501.9520, L100.0100, L501.5200 #### [facility] [address] [place], [place], [address] MALB:CREAT UNABLE TO CALCULATE Normal <30 mg/g CRE [facility] Comment on above: Order Comment: Order Date: 09/24/24 Order Info: 785-03 - CMP Order Info: [id number] - LIPID Order Info: [id number] - MG Order Info: 3016-3 - TSH Performed By: #### L 500.4100, L500.4050, L501.9520, L100.0100, L501.5200 #### [facility] [address] [place], [place], [address] MICROALBUMIN,UR < 12.0 Normal <20 mg/L [facility] Comment on above: Order Comment: Order Date: 09/24/24 Order Info: 0786 - CMP Order Info: [id number] - LIPID Order Info: [id number] - MG Order Info: 3016-3 - TSH Performed By: #### L 500.4100, L500.4050, L501.9520, L100.0100, L501.5200 #### [facility] [address] [place], [address] Microalbumin/creat ratio urO rdered By: Mason Lagunas on 10-01-2024 Urine microalbumin/creatinine ratio measurement UNABLE TO CALCULATE mg/g CRE <30 [facility] Monocyte percentageOrdered B y: Mason Lagunas on 10-01-2024 Monocytes/100 WBC (Bld) 6.0 % 0-10 [facility] Neutrophil percentageOrdered By: Mason Lagunas on 10-01-2024 Neutrophils/100 WBC (Bld) 63.0 % 47-70 [facility] Nucleated red blood cell per centageOrdered By: Mason Lagunas on 10-01-2024 Nucleated RBC/100 WBC (Bld) [Ratio] 0 % 0-5 [facility] Platelet countOrdered By: Celestine Lagunas on 10-01-2024 Platelets (Bld) [#/Vol] 180 10*3/uL 150-450 [facility] Potassium measurement (mass/ volume)Ordered By: Mason Lagunas on 10-01-2024 Potassium (Unsp spec) [Mass/Vol] 4.0 mmol/L 3.3-5.1 [facility] RBC Auto (Bld) [#/Vol]Ordere d By: Mason Lagunas on 10-01-2024 RBC (Bld) [#/Vol] 4.58 10*6/uL 4.2-5.4 [facility] Random urine creatinine gennaro urement (mass/volume)Ordered By: Mason Lagunas on 10-01-2024 Creatinine Unsp time (U) [Mass/Vol] 51.90 mg/dL 28.00-217.0 0 [facility] Screening total cholesterol/ high density lipoprotein (HDL) cholesterol ratioOrdered By: Mason Lagunas on 10-01-2024 Cholesterol.total/Lolita sterol in HDL [Mass ratio] 2.62 {ratio} [facility] Serum creatinine measurement (mass/volume)Ordered By: Mason Lagunas on 10-01-2024 Creatinine [Mass/Vol] 1.10 mg/dL 0.70-1.20 [facility] Serum globulin measurementOr dered By: Mason Lagunas on 10-01-2024 Globulin (S) [Mass/Vol] 3.6 g/dL 2.2-4.2 [facility] Serum glucose measurement (m ass/volume)Ordered By: Mason Lagunas on 10-01-2024 Glucose [Mass/Vol] 104 mg/dL High 70-99 [facility] Serum or plasma alanine james otransferase (ALT) measurementOrdered By: Mason Lagunas on 10-01-2024 ALT [Catalytic activity/Vol] 21 U/L <35 [facility] Serum or plasma albumin gennaro urement (mass/volume)Ordered By: Mason Lagunas on 10-01-2024 Albumin [Mass/Vol] 4.2 g/dL 3.4-4.8 [facility] Serum or plasma albumin/glob ulin mass ratioOrdered By: Mason Lagunas on 10-01-2024 Albumin/Globulin [Mass ratio] 1.2 {ratio} 0.9-2.4 [facility] Serum or plasma alkaline alexis sphatase measurementOrdered By: Mason Lagunas on 10-01-2024 ALP [Catalytic activity/Vol] 148 U/L High 35-104 [facility] Serum or plasma calcium gennaro urement (mass/volume)Ordered By: Mason Lagunas on 10-01-2024 Calcium [Mass/Vol] 10.0 mg/dL 7.6-11.0 [facility] Serum or plasma cholesterol in HDL measurement (mass/volume)Ordered By: Mason Lagunas on 10-01-2024 Cholesterol in HDL [Mass/Vol] 60 mg/dL >40 [facility] Comment on above: National Cholesterol Education Program (NCEP) guidelines:<40 mg/dL: Low HDL-cholesterol (major risk factor for CHD)>= 60 mg/dL: High HDL-cholesterol (negative risk factor for CHD)HDL-cholesterol is affected by a number of factors, e.g. smoking, exercise, hormones, sex and age. Serum or plasma cholesterol measurement (mass/volume)Ordered By: Mason Lagunas on 10-01-2024 Cholesterol [Mass/Vol] 158 mg/dL <201 [facility] Comment on above: Cholesterol level, D esirable <200 mg/dLBorderline high cholesterol 200-239 mg/dLHigh cholesterol >=240 mg/dLRecommendations of the NCEP Adult Treatment Panel for the following risk-cutoff thresholds for the [place] population. Serum or plasma urea nitroge n measurement (mass/volume)Ordered By: Mason Lagunas on 10-01-2024 Urea nitrogen [Mass/Vol] 19 mg/dL 4-19 [facility] Sodium levelOrdered By: Mason Lagunas on 10-01-2024 Sodium [Moles/Vol] 141 mmol/L 133-145 [facility] TSH DL <= 0.005 mIU/L QnOrde red By: Mason Lagunas on 10-01-2024 TSH Qn 2.110 uIU/mL 0.300-4.200 [facility] Thyroid Stim Hormone (TSH)on 10-01-2024 TSH 2.110 uIU/mL Normal 0.300-4.200 [facility] Comment on above: Order Comment: Order Date: 09/24/24 Order Info: 0786-1 - CMP Order Info: [id number] - LIPID Order Info: [id number] - MG Order Info: 3016-3 - TSH Performed By: #### L 500.4100, L500.4050, L501.9520, L100.0100, L501.5200 #### [facility] [address] [place], [place], [address] Total proteinOrdered By: Cleo Lagunas on 10-01-2024 Protein [Mass/Vol] 7.8 g/dL 5.9-8.4 [facility] Triglycerides measurementOrd ered By: Mason Lagunas on 10-01-2024 Triglyceride [Mass/Vol] 138 mg/dL <199 [facility] Comment on above: The drugs N-Acetylcy steine and Metamizole may falsely depress this assay. Normal range: <150 mg/dLBorderline High: 150-199 mg/dLHigh: 200-499 mg/dLVery High: >500 mg/dL Urine albumin measurement wi detection limit of 20 mg/L or less (mass/volume)Ordered By: Mason Lagunas on 10-01-2024 Albumin DL <= 20 mg/L (U) [Mass/Vol] < 12.0 mg/L <20 mg/L [facility] White blood cell (WBC) count Ordered By: Mason Lagunas on 10-01-2024 WBC (Bld) [#/Vol] 8.7 10*3/uL 4.4-11.0 [facility] Breast imaging reportOrdered By: Keiko Cobian on 08-11-2024 Study report [facility] Imaging Services [address] [place], [place] [address] SCRN MAMM (CAD)W/ELIZABETH BILAT MR#: [id number] Acct: [id number] Name: JALEESA BASHIR Rep #: [id number] : 1955 F 68 From: Fern Cobian MD PCP: Dr. Mason Lagunas MD Status: REG CLI Study:SCRN MAMM (CAD)W/ELIZABETH BILAT Date of Exa m: 08/11/24 Exam# [id number] Ordering Dr: Celestine Lagunas MD EXAM: SCRN MAMM (CAD)W/ELIZABETH BILAT 08/11/2024 CLINICAL HISTORY: F, Age 68 y/o , SCREENING TECHNIQUE: Bilateral screening digital breast tomosynthesis with 2D and 3D images. Computeraided detection. COMPARISON: Prior exam(s) dated 08/14/2022, 09/06/2020. FINDINGS: TISSUE DENSITY: The breast tissue is composed of scattered area of fibroglandular density.. Bilateral Breast Mammographic Findings: No significant masses, calcifications or other abnormalities are identified. BI/SCRN MAMM (CAD)W/ELIZABETH BILAT IMPRESSION: Right Breast: BIRADS 1 NEGATIVE. Left Breast: BIRADS 1 NEGATIVE. OVERALL FINAL ASSESSMENT: BIRADS 1 NEGATIVE. RECOMMENDATION: Routine annual follow-up in 1 Year A letter with findings and recommendations will be mailed to the patient. Reading Location: [id number] CC: Dr. Mason Lagunas MD ~ Rehabilitation Counselor: Signed [facility] SCRN MAMM (CAD)W/ELIZABETH BILATo n 08-11-2024 SCRN MAMM (CAD)W/ELIZABETH BILAT [facility] Imaging Services [address] [place], [place] [address] SCRN MAMM (CAD)W/ELIZABETH BILAT MR#: [id number] Acct: [id number] Name: JALEESA BASHIR Rep #: [id number] : 1955 F 68 From: Keiko Cobian MD PCP: Dr. Mason Lagunas MD Status: REG CLI Study: SCRN MAMM (CAD)W/ELIZABETH BILAT Date of Exam: 07/16 11/08 Exam# [id number] Ordering Dr: Mason Lagunas MD EXAM: SCRN MAMM (CAD)W/ELIZABETH BILAT 08/11/2024 CLINICAL HISTORY: F, Age 68 y/o , SCREENING TECHNIQUE: Bilateral screening digital breast tomosynthesis with 2D and 3D images. Computer aided detection. COMPARISON: Prior exam(s) dated 08/14/2022, 09/06/2020. FINDINGS: TISSUE DENSITY: The breast tissue is composed of scattered area of fibroglandular density.. Bilateral Breast Mammographic Findings: No significant masses, calcifications or other abnormalities are identified. BI/SCRN MAMM (CAD)W/ELIZABETH BILAT IMPRESSION: Right Breast: BIRADS 1 NEGATIVE. Left Breast: BIRADS 1 NEGATIVE. OVERALL FINAL ASSESSMENT: BIRADS 1 NEGATIVE. RECOMMENDATION: Routine annual follow-up in 1 Year A letter with findings and recommendations will be mailed to the patient. Reading Location: [facility] CC: Dr. Mason Lagunas MD Rehabilitation Counselor: Signed Normal [facility] Basic Metabolic Profile (BMP )on 02-17-2024 BUN Normal 7-18 [facility] Comment on above: Order Comment: Order Date: 02/17/24 Order Info: [id number] - BMP Result Comment: TUBE S WERE NOT SPUN DOWN WITHIN TWO HOURS PER POLICY. SAMPLES WILL NEED RECOLLECTED. EMAILS HAVE BEEN SENT TO LAB STAFF. Performed By: #### L 502.0250, L500.2500 #### [facility] [address] [place], [address] BUN/CRE Normal 10-20 [facility] Comment on above: Order Comment: Order Date: 02/17/24 Order Info: 666-03 - BMP Result Comment: TUBE S WERE NOT SPUN DOWN WITHIN TWO HOURS PER POLICY. SAMPLES WILL NEED RECOLLECTED. EMAILS HAVE BEEN SENT TO LAB STAFF. Performed By: #### L 502.0250, L500.2500 #### [facility] [address] [place], [address] CA,Total Normal 8.5-10.1 [facility] Comment on above: Order Comment: Order Date: 02/17/24 Order Info: 666-03 - BMP Result Comment: TUBE S WERE NOT SPUN DOWN WITHIN TWO HOURS PER POLICY. SAMPLES WILL NEED RECOLLECTED. EMAILS HAVE BEEN SENT TO LAB STAFF. Performed By: #### L 502.0250, L500.2500 #### [facility] [address] [place], [place], [id number] (117) CL Normal 98-107 [facility] Comment on above: Order Comment: Order Date: 02/17/24 Order Info: 666-03 - BMP Result Comment: TUBE S WERE NOT SPUN DOWN WITHIN TWO HOURS PER POLICY. SAMPLES WILL NEED RECOLLECTED. EMAILS HAVE BEEN SENT TO LAB STAFF. Performed By: #### L 502.0250, L500.2500 #### [facility] [address] [place], [address] CO2 Normal 21.0-32.0 [facility] Comment on above: Order Comment: Order Date: 02/17/24 Order Info: 666-03 - BMP Result Comment: TUBE S WERE NOT SPUN DOWN WITHIN TWO HOURS PER POLICY. SAMPLES WILL NEED RECOLLECTED. EMAILS HAVE BEEN SENT TO LAB STAFF. Performed By: #### L 502.0250, L500.2500 #### [facility] [address] [place], [address] CREAT,SERUM Normal 0.55-1.02 [facility] Comment on above: Order Comment: Order Date: 02/17/24 Order Info: [id number]- - BMP Result Comment: TUBE S WERE NOT SPUN DOWN WITHIN TWO HOURS PER POLICY. SAMPLES WILL NEED RECOLLECTED. EMAILS HAVE BEEN SENT TO LAB STAFF. Performed By: #### L 502.0250, L500.2500 #### [facility] [address] [place], [address] EST GFR Normal >60 [facility] Comment on above: Order Comment: Order Date: 02/17/24 Order Info: [id number] - BMP Result Comment: TUBE S WERE NOT SPUN DOWN WITHIN TWO HOURS PER POLICY. SAMPLES WILL NEED RECOLLECTED. EMAILS HAVE BEEN SENT TO LAB STAFF. Performed By: #### L 502.0250, L500.2500 #### [facility] [address] [place], [address] EST GFR - AA Normal >60 [facility] Comment on above: Order Comment: Order Date: 02/17/24 Order Info: [id number]- - BMP Result Comment: TUBE S WERE NOT SPUN DOWN WITHIN TWO HOURS PER POLICY. SAMPLES WILL NEED RECOLLECTED. EMAILS HAVE BEEN SENT TO LAB STAFF. Performed By: #### L 502.0250, L500.2500 #### [facility] [address] [place], [address] GAP Normal 5-15 [facility] Comment on above: Order Comment: Order Date: 02/17/24 Order Info: [id number]- - BMP Result Comment: TUBE S WERE NOT SPUN DOWN WITHIN TWO HOURS PER POLICY. SAMPLES WILL NEED RECOLLECTED. EMAILS HAVE BEEN SENT TO LAB STAFF. Performed By: #### L 502.0250, L500.2500 #### [facility] [address] [place], [address] GLU Normal 74-106 [facility] Comment on above: Order Comment: Order Date: 02/17/24 Order Info: [id number]- - BMP Result Comment: TUBE S WERE NOT SPUN DOWN WITHIN TWO HOURS PER POLICY. SAMPLES WILL NEED RECOLLECTED. EMAILS HAVE BEEN SENT TO LAB STAFF. Performed By: #### L 502.0250, L500.2500 #### [facility] [address] [place], [address] Potassium Normal 3.5-5.1 [facility] Comment on above: Order Comment: Order Date: 02/17/24 Order Info: [id number] - BMP Result Comment: TUBE S WERE NOT SPUN DOWN WITHIN TWO HOURS PER POLICY. SAMPLES WILL NEED RECOLLECTED. EMAILS HAVE BEEN SENT TO LAB STAFF. Performed By: #### L 502.0250, L500.2500 #### [facility] [address] [place], [address] Basic Metabolic Profile (BMP) Normal 136-145 [facility] Comment on above: Order Comment: Order Date: 02/17/24 Order Info: [id number] - BMP Result Comment: TUBE S WERE NOT SPUN DOWN WITHIN TWO HOURS PER POLICY. SAMPLES WILL NEED RECOLLECTED. EMAILS HAVE BEEN SENT TO LAB STAFF. Performed By: #### L 502.0250, L500.2500 #### [facility] [address] [place], [place], [address] Microalb:Creat Ratio,Random URon 02-17-2024 Creatinine [Mass/Vol] 71.80 mg/dL Normal NO RAN GE EST. [facility] Comment on above: Order Comment: Order Date: 02/17/24 Order Info: [id number] - MIACRE Performed By: #### L 502.0250, L500.2500 #### [facility] [address] [place], [address] MALB:CRE 10.4 mg/g CRE Normal <30 mg/g CRE [facility] Comment on above: Order Comment: Order Date: 02/17/24 Order Info: [id number] - MIACRE Performed By: #### L 502.0250, L500.2500 #### [facility] [address] [place], [address] MICROALBUMIN,UR 7.4 mg/L Normal NO RANGE EST. [facility] Comment on above: Order Comment: Order Date: 02/17/24 Order Info: [id number] - MIACRE Performed By: #### L 502.0250, L500.2500 #### [facility] [address] [place], [address] Absolute lymphocyte countOrd ered By: Dr. Lagunas on 07-22-2022 Lymphocytes Auto (Unsp spec) [#/Vol] 1.47 10*3/uL 0.83-4.51 [facility] Basophil percentageOrdered B y: Dr. Lagunas on 07-22-2022 Basophils/100 WBC (Bld) 0.3 % 0-1 [facility] Bilirubin [Mass/Vol] 0.40 mg/dL 0.20-1.00 [facility] Comment on above: For patients on eltr ombopag therapy, use of Dimension [place] TBIL is not recommended. Chloride [Moles/Vol] 109 mmol/L 98-107 [facility] Cholesterol [Mass/Vol] 152 mg/dL <200 [facility] Comment on above: <200 mg/dL Desirable 200-240 mg/dL Borderline >240 mg/dL High Risk Eosinophils/100 WBC (Bld) 1.5 % 0-5 [facility] Glucose [Mass/Vol] 94 mg/dL 74-106 [facility] Neutrophils (Bld) [#/Vol] 4.8 10*3/uL 2.0-7.7 [facility] Neutrophils/100 WBC (Bld) 71.0 % 47-70 [facility] Potassium [Moles/Vol] 4.1 mmol/L 3.5-5.1 [facility] Protein [Mass/Vol] 8.3 g/dL 6.4-8.2 [facility] Sodium [Moles/Vol] 141 mmol/L 136-145 [facility] Triglyceride [Mass/Vol] 99 mg/dL <199 [facility] Comment on above: The drugs N-Acetylcy steine and Metamizole may falsely depress this assay.Serum Triglycerides Reference Interval Normal <150 mg/dL Borderline high 150 - 199 mg/dL High 200 - 499 mg/dL Very High > or = 500 mg/dL WBC (Bld) [#/Vol] 6.8 10*3/uL 4.4-11.0 [facility] Blood erythrocytes count (nu mber/volume)Ordered By: Dr. Lagunas on 05-08-2023 RBC (Bld) [#/Vol] 4.56 10*6/uL 4.2-5.4 [facility] Blood hemoglobin measurement (mass/volume)Ordered By: Dr. Lagunas on 07-22-2022 Hemoglobin (Bld) [Mass/Vol] 13.1 g/dL 12.0-15.0 [facility] Blood lymphocytes/100 leukoc ytesOrdered By: Dr. Lagunas on 07-22-2022 Lymphocytes/100 WBC (Bld) 21.7 % 19-41 [facility] Blood monocytes/100 leukocyt esOrdered By: Dr. Lagunas on 07-22-2022 Monocytes/100 WBC (Bld) 5.2 % 0-10 [facility] Blood platelet mean volumeOr dered By: Dr. Lagunas on 07-22-2022 Platelet mean volume (Bld) [Entitic vol] 11.9 fL 6.2-12.0 [facility] Determination of erythrocyte mean corpuscular volume (MCV)Ordered By: Dr. Lagunas on 07-22-2022 MCV (RBC) [Entitic vol] 92.5 fL 81-99 [facility] Hematocrit Auto (Bld) [Volum e fraction]Ordered By: Dr. Lagunas on 07-22-2022 Hematocrit (Bld) [Volume fraction] 42.2 % 37-47 [facility] - Chemistry and C hemistry - challengeOrdered By: Dr. Lagunas on 07-22-2022 ALP [Catalytic activity/Vol] 143 U/L 45-117 [facility] ALT [Catalytic activity/Vol] 34 U/L 13-56 [facility] CO2 [Moles/Vol] 24.0 mmol/L 21.0-32.0 [facility] Globulin (S) [Mass/Vol] 4.6 g/dL 2.2-4.2 [facility] Urea nitrogen/Creatinine [Mass ratio] 20.6 mg/mg 10-20 [facility] - Hematology and Cell countsOrdered By: Dr. Lagunas on 07-22-2022 Erythrocyte distribution width (RBC) [Entitic vol] 43.7 fL 35.1-43.9 [facility] Erythrocyte distribution width (RBC) [Ratio] 12.8 % 11.6-14.6 [facility] Immature granulocytes/100 WBC (Bld) 0.300 % 0.0-0.9 [facility] Comment on above: IG% - Immature Granu locytes (promyelocytes, myelocytes and metamyelocytes) > 1% indicates that a LEFT SHIFT is Present. MCH (RBC) [Entitic mass] 28.7 pg 27.0-32.0 [facility] Nucleated RBC/100 WBC (Bld) [Ratio] 0 % 0-5 [facility] MCHC Auto (RBC) [Mass/Vol]Or dered By: Dr. Lagunas on 07-22-2022 MCHC (RBC) [Mass/Vol] 31.0 g/dL 32-36 [facility] No Panel InformationOrdered By: Dr. Lagunas on 07-22-2022 Estimated GFR (MDRD) Amer 66 mL/min >60 [facility] Comment on above: GFR Calc Estimated GFR (MDRD) Non-Af Amer 55 mL/min >60 [facility] Comment on above: Non- GFR Calc Thyroid Stimulating Hormone (TSH) 1.63 uIU/mL 0.358-3.74 [facility] Urine Microalbumin/Creatinine Ratio 14.1 mg/g CRE <30 [facility] Vitamin D 25-Hydroxy 74.2 ng/mL [facility] Comment on above: Vitamin D 25(OH) Sta tus Range Deficiency <20 ng/mL (50nmol/L) Insufficiency 20 - 30 ng/mL (50 - 75 nmol/L) Sufficiency 30 - 100 ng/mL (75 - 250 nmol/L) Toxicity >100 ng/mL (>250 nmol/L) Platelets bldOrdered By: Dr. Lagunas on 07-22-2022 Platelets (Bld) [#/Vol] 223 10*3/uL 150-450 [facility] Serum or plasma albumin gennaro urement (mass/volume)Ordered By: Dr. Lagunas on 07-22-2022 Albumin [Mass/Vol] 3.7 g/dL 3.2-5.0 [facility] Serum or plasma albumin/glob ulin mass ratioOrdered By: Dr. Lagunas on 07-22-2022 Albumin/Globulin [Mass ratio] 0.8 {ratio} 0.9-2.4 [facility] Serum or plasma calcium gennaro urement (mass/volume)Ordered By: Dr. Lagunas on 07-22-2022 Calcium [Mass/Vol] 9.3 mg/dL 8.5-10.1 [facility] Serum or plasma cholesterol in HDL measurement (mass/volume)Ordered By: Dr. Lagunas on 07-22-2022 Cholesterol in HDL [Mass/Vol] 63 mg/dL >40 [facility] Comment on above: The drugs N-Acetylcy steine and Metamizole may falsely depress this assay. Reference Range HDL <40 mg/dL Low HDL Cholesterol HDL >or= 60 mg/dL High HDL Cholesterol Serum or plasma cholesterol in VLDL measurement (mass/volume)Ordered By: Dr. Lagunas on 07-22-2022 Cholesterol in VLDL [Mass/Vol] 20 mg/dL 5-40 [facility] Serum or plasma creatinine m easurement (mass/volume)Ordered By: Dr. Lagunas on 07-22-2022 Creatinine [Mass/Vol] 1.07 mg/dL 0.55-1.02 [facility] Comment on above: The validity of the calculated GFR & GFRAA in patients over 70 years has not been determined. Clinical correlation is essential. Serum or plasma low density lipoprotein (LDL) cholesterol measurement (mass/volume)Ordered By: Dr. Lagunas on 07-22-2022 Cholesterol in LDL [Mass/Vol] 69 mg/dL 0-130 [facility] Serum or plasma urea nitroge n measurement (mass/volume)Ordered By: Dr. Lagunas on 07-22-2022 Urea nitrogen [Mass/Vol] 22 mg/dL 7-18 [facility] Thin prep Papanicolaou smear with manual screeningOrdered By: Dr. Lagunas on 07-22-2022 Thin prep Papanicolaou smear with manual screening 30 U/L 15-37 [facility] Thin prep Papanicolaou smear with manual screening 8 5-15 [facility] Thin prep Papanicolaou smear with manual screening 9.1 mg/L NO RANGE EST. [facility] Urine creatinine measurement (mass/volume)Ordered By: Dr. Lagunas on 07-22-2022 Creatinine (U) [Mass/Vol] 64.50 mg/dL NO RANGE EST. [facility] Whole blood hemoglobin A1c/t otal hemoglobin ratio (mass fraction)Ordered By: Dr. Lagunas on 07-22-2022 HbA1c (Bld) [Mass fraction] 5.6 % 3.8-5.6 [facility] Comment on above: Normal < 5.7 % Predi abetic 5.7 - 6.4 % Diabetic >or= 6.5 % Please note range changes. Absolute lymphocyte counton 09-13-2021 Lymphocytes Auto (Unsp spec) [#/Vol] 1.90 10*3/uL 0.83-4.51 [facility] Work Phone: Basophil percentageon 2021 Basophils/100 WBC (Bld) 0.4 % 0-1 [facility] Work Phone: Bilirubin [Mass/Vol] 0.60 mg/dL 0.20-1.00 [facility] Work Phone: Comment on above: For patients on eltr ombopag therapy, use of Dimension [place] TBIL is not recommended. Chloride [Moles/Vol] 110 mmol/L 98-107 [facility] Work Phone: Eosinophils/100 WBC (Bld) 1.3 % 0-5 [facility] Work Phone: Glucose [Mass/Vol] 105 mg/dL 74-106 [facility] Work Phone: Comment on above: Fasting Glucose resu lt from 100 to 125 mg/dL suggests IMPAIRED HOMEOSTASIS per A.D.A. criteria. Neutrophils (Bld) [#/Vol] 4.4 10*3/uL 2.0-7.7 [facility] Work Phone: Neutrophils/100 WBC (Bld) 63.7 % 47-70 [facility] Work Phone: Potassium [Moles/Vol] 4.0 mmol/L 3.5-5.1 [facility] Work Phone: Protein [Mass/Vol] 7.1 g/dL 6.4-8.2 [facility] Work Phone: Sodium [Moles/Vol] 141 mmol/L 136-145 [facility] Work Phone: WBC (Bld) [#/Vol] 6.9 10*3/uL 4.4-11.0 [facility]: Blood erythrocytes count (nu mber/volume)on 09-13-2021 RBC (Bld) [#/Vol] 4.55 10*6/uL 4.2-5.4 [facility]: Blood hemoglobin measurement (mass/volume)on 09-13-2021 Hemoglobin (Bld) [Mass/Vol] 13.0 g/dL 12.0-15.0 [facility] Work Phone: [phone] Blood lymphocytes/100 leukoc yteson 09-13-2021 Lymphocytes/100 WBC (Bld) 27.7 % 19-41 [facility] Work Phone: [phone] Blood monocytes/100 leukocyt eson 09-13-2021 Monocytes/100 WBC (Bld) 6.6 % 0-10 [facility] Work Phone: Blood platelet mean volumeon 09-13-2021 Platelet mean volume (Bld) [Entitic vol] 11.8 fL 6.2-12.0 [facility] Work Phone: Determination of erythrocyte mean corpuscular volume (MCV)on 09-13-2021 MCV (RBC) [Entitic vol] 89.2 fL 81-99 [facility] Work Phone: Hematocrit Auto (Bld) [Volum e fraction]on 09-13-2021 Hematocrit (Bld) [Volume fraction] 40.6 % 37-47 [facility] Work Phone: Laboratory - Chemistry and C hemistry - challengeon 09-13-2021 ALP [Catalytic activity/Vol] 120 U/L 45-117 [facility] Work Phone: ALT [Catalytic activity/Vol] 50 U/L 13-56 [facility] Work Phone: CO2 [Moles/Vol] 26.0 mmol/L 21.0-32.0 [facility] Work Phone: Globulin (S) [Mass/Vol] 3.4 g/dL 2.2-4.2 [facility] Work Phone: Urea nitrogen/Creatinine [Mass ratio] 15.6 mg/mg 10-20 [facility] Work Phone: Laboratory - Hematology and Cell countson 09-13-2021 Erythrocyte distribution width (RBC) [Entitic vol] 42.6 fL 35.1-43.9 [facility] Work Phone: Erythrocyte distribution width (RBC) [Ratio] 13.1 % 11.6-14.6 [facility] Work Phone: Immature granulocytes/100 WBC (Bld) 0.300 % 0.0-0.9 [facility] Work Phone: Comment on above: IG% - Immature Granu locytes (promyelocytes, myelocytes and metamyelocytes) > 1% indicates that a LEFT SHIFT is Present. MCH (RBC) [Entitic mass] 28.6 pg 27.0-32.0 [facility] Work Phone: Nucleated RBC/100 WBC (Bld) [Ratio] 0 % 0-5 [facility] Work Phone: MCHC Auto (RBC) [Mass/Vol]on 09-13-2021 MCHC (RBC) [Mass/Vol] 32.0 g/dL 32-36 [facility] Work Phone: No Panel Informationon 09-13 Estimated GFR (MDRD) Amer 65 mL/min >60 [facility] Work Phone: Comment on above: GFR Calc Estimated GFR (MDRD) Non-Af Amer 54 mL/min >60 [facility] Work Phone: Comment on above: Non- GFR Calc Thyroid Stimulating Hormone (TSH) 1.40 uIU/mL 0.358-3.74 [facility] Work Phone: Urine Microalbumin/Creatinine Ratio 9.0 mg/g CRE <30 [facility] Work Phone: Platelets bldon 09-13-2021 Platelets (Bld) [#/Vol] 203 10*3/uL 150-450 [facility] Work Phone: Serum or plasma albumin gennaro urement (mass/volume)on 09-13-2021 Albumin [Mass/Vol] 3.7 g/dL 3.2-5.0 [facility] Work Phone: Serum or plasma albumin/glob ulin mass ratioon 09-13-2021 Albumin/Globulin [Mass ratio] 1.1 {ratio} 0.9-2.4 [facility] Work Phone: Serum or plasma calcium gennaro urement (mass/volume)on 09-13-2021 Calcium [Mass/Vol] 9.3 mg/dL 8.5-10.1 [facility] Work Phone: Serum or plasma creatinine m easurement (mass/volume)on 09-13-2021 Creatinine [Mass/Vol] 1.09 mg/dL 0.55-1.02 [facility] Work Phone: Comment on above: The validity of the calculated GFR & GFRAA in patients over 70 years has not been determined. Clinical correlation is essential. Serum or plasma urea nitroge n measurement (mass/volume)on 09-13-2021 Urea nitrogen [Mass/Vol] 17 mg/dL 7-18 [facility] Work Phone: Thin prep Papanicolaou smear with manual screeningon 09-13-2021 Thin prep Papanicolaou smear with manual screening 43 U/L 15-37 [facility] Work Phone: Thin prep Papanicolaou smear with manual screening 5 5-15 [facility] Work Phone: Thin prep Papanicolaou smear with manual screening 6.1 mg/L NO RANGE EST. [facility] Work Phone: Urine creatinine measurement (mass/volume)on 09-13-2021 Creatinine (U) [Mass/Vol] 68.20 mg/dL NO RANGE EST. [facility] Work Phone: CNOVon 04-02-2017 CNOV Office Visit (WOOB) JALEESA BASHIR ([id number]) 1955 [facility] Time Provider Department04/02/17 9:00 AM PEDRO HINTON During your visit today, we recorded the following information about you: Blood pressure Weight Height 146/86 88.9 kg 1.549 Armando Novoa MD 04/02/2017 9:38 AM Gerard Luca Bashir is a 61 year old who presents for her annualgynecologic exam without complaints. Not currently working- has 3 grandsonsages 1-6.Postmenopausal: YesHRT use: No.Last Pap: 2014 normalHPV: 2014 negativeHistory of abnormal pap: NoLast mammogram: 2017 normalHistory of abnormal mammogram: NoSexually active: Not for yearsHistory of STDS: NonePatient concerns for STD exposure: No.Hot flashes: NoNight sweats: NoVaginal dryness: NoExercise: walkingDiet: balancedObstetric History T2 L2 SAB0 TAB0 Ectopic0 Multiple0 Live [id number] MEDICAL HISTORYDiagnosis Date- Acute sinusitis, unspecified- Hypertension- Shoulder painPAST SURGICAL HISTORYProcedure Laterality Date- NONEFAMILY HISTORYProblem Relation Age of Onset- Heart Father [place] at age 43- Heart Mother- Diabetes Mother- Hypertension Mother- Osteoporosis Mother- Heart Maternal Grandfather [place]- Breast Cancer Maternal AuntSOCIAL HISTORYSocial HistorySubstance Use Topics- Smoking status: Never Smoker- Smokeless tobacco: Never Used- Alcohol use Yes Comment: OccasionallyREVIEW OF SYSTEMSAbdomen: No abdominal pain, nausea, vomiting, diarrhea, or constipation. Nobloating, early satiety, indigestion, or increased flatulence.Bladder: No dysuria, gross hematuria, urinary frequency, urinary urgency, orincontinenceBreast: No breast lumps, nipple d/c, overlying skin changes, redness or skinretractionAllergies and current medication updated:YesEXAM: Ht 5' 1ANDquot; (1.55m) Wt 196 lb (88.9kg) LMP 10/24/2005 BMI 37.05kg/(m2).GENERAL: pleasant, female in no apparent distressHEENT: Normocephalic, atraumatic, mucus membranes moist and no lesionsNECK: Supple, full range of motion, no adenopathy and thyroid normalDERMATOLOGY: Normal, without lesions, non-icteric and non-hirsuteBREAST: soft, non-tender, symmetric, no dominant mass, normal nipple-areolarcomplex, no lymphadenopathy and no nipple dischargeABDOMEN: soft, non-tender and no massesPELVIC: external genitalia normal, normal Bartholin's glands, urethra, Montverde'sglands, no vulvar lesions, no cervical lesions, good vaginal support,physiologic discharge present, normal appearing perineal body and perianalregion, small raised skin tag/nevus on left groin- as per patient it has beenthere for many years and has not changed.BIMANUAL: uterus normal size, shape and consistency, no adnexal masses andnon-tenderRECTOVAGINAL : rectovaginal exam negative for any masses or nodularity.NEURO: alert and oriented x3,exam grossly non-focalEXTREMITIES: normalASSESSMENT/PLAN:1) Health maintenance:Pap/HPV up to date.Mammogram orderedMammogram up to dateNutrition, exercise and routine health maintenance exams reviewed.Calcium/Vitamin D supplementation information provided.Colon cancer screening: declines colonoscopy- screening with PCPBMD: up to date2) Follow up one year or sooner as neededJoi Thurston Provider: SELF [[id number]]Allergies As of Date: 04/02/2017(No Known Allergies)Date Reviewed: 04/02/2017Reviewed by: Rocco Lora Ma - Fully AssessedReason for Visit: Yearly Exam [187]Primary Visit Diagnosis:Encounter for gynecological examination (general) (routine) without abnormal findings [Z01.419] Other Visit Diagnosis:Encounter for screening mammogram for breast cancer [Z12.31]Order(s):[facility] SCREENING [[id number]] Order #: [id number] FUTUREPrescriptions as of 04/02/2017 Sig: VITAMIN D3 ORAL Take 2,000 Units by mouth. METOPROLOL SUCCINATE ER 50 MG* Take 50 mg by mouth once rodríguez* BUTTERBUR ROOT EXTRACT 50 MG * Take by mouth. NABUMETONE 500 MG TABLET Take 1 tablet by mouth twice * TOPIRAMATE 25 MG TABLET Take 25 mg by mouth once rodríguez* ATORVASTATIN 20 MG TABLET Take 20 mg by mouth once rodríguez* AMLODIPINE ORAL Take by mouth. FLONASE NASAL Use in the nose. As needed DIPHENHYDRAMINE 50 MG TABLET Take 50 mg by mouth at bedtim* * WOMEN'S DAILY MULTIVITAMIN OR* Take by mouth. Patient also *Medication notes this encounter NABUMETONE 500 MG TABLET >> Rocco Lora Ma 04/02/2017 9:09 AM >> ROCCO LORA MA Apr 02, 2017 9:09 AM Not takingProblem List As Of Date 04/02/2017 Noted Resolved Hypercholesterolemia [E78.00] INVALID FOR* HTN (hypertension) [I10] INVALID FOR*Disposition: Return in 1 year (on 04/02/2018) for Annual Exam.Follow-up and Disposition History RecordedEncounter Number: [id number] Status:Closed by PEDRO TRINH MD on 04/02/17 [facility] PROGRESSon 04-02-2017 PROGRESS HNO ID: [id number] thor: Pedro TrinhService: (none)Author Type: PhysicianType: Progress NotesFiled: 04/02/2017 9:38 AMNote Text:Jaleesa Bashir is a 61 year old who presents for her annualgynecologic exam without complaints. Not currently working- has 3grandsons ages 1-6.Postmenopausal: YesHRT use: No.Last Pap: 2014 normalHPV: 2015 negativeHistory of abnormal pap: NoLast mammogram: 2017 normalHistory of abnormal mammogram: NoSexually active: Not for yearsHistory of STDS: NonePatient concerns for STD exposure: No.Hot flashes: NoNight sweats: NoVaginal dryness: NoExercise: walkingDiet: balancedObstetric History T2 L2 SAB0 TAB0 Ectopic0 Multiple0 Live [id number] MEDICAL HISTORYDiagnosis Date- Acute sinusitis, unspecified- Hypertension- Shoulder painPAST SURGICAL HISTORYProcedure Laterality Date- NONEFAMILY HISTORYProblem Relation Age of Onset- Heart Father [place] at age 43- Heart Mother- Diabetes Mother- Hypertension Mother- Osteoporosis Mother- Heart Maternal Grandfather [place]- Breast Cancer Maternal AuntSOCIAL HISTORYSocial HistorySubstance Use Topics- Smoking status: Never Smoker- Smokeless tobacco: Never Used- Alcohol use Yes Comment: OccasionallyREVIEW OF SYSTEMSAbdomen: No abdominal pain, nausea, vomiting, diarrhea, or constipation.No bloating, early satiety, indigestion, or increased flatulence.Bladder: No dysuria, gross hematuria, urinary frequency, urinary urgency,or incontinenceBreast: No breast lumps, nipple d/c, overlying skin changes, redness orskin retractionAllergies and current medication updated:YesEXAM: Ht 5' 1" (1.55m) Wt 196 lb (88.9kg) LMP 10/24/2005 BMI 37.05kg/(m2).GENERAL: pleasant, female in no apparent distressHEENT: Normocephalic, atraumatic, mucus membranes moist and no lesionsNECK: Supple, full range of motion, no adenopathy and thyroid normalDERMATOLOGY: Normal, without lesions, non-icteric and non-hirsuteBREAST: soft, non-tender, symmetric, no dominant mass, normalnipple-areolar complex, no lymphadenopathy and no nipple dischargeABDOMEN: soft, non-tender and no massesPELVIC: external genitalia normal, normal Bartholin's glands, urethra,Montverde's glands, no vulvar lesions, no cervical lesions, good vaginalsupport, physiologic discharge present, normal appearing perineal body andperianal region, small raised skin tag/nevus on left groin- as per patientit has been there for many years and has not changed.BIMANUAL: uterus normal size, shape and consistency, no adnexal masses andnon-tenderRECTOVAGINAL : rectovaginal exam negative for any masses or nodularity.NEURO: alert and oriented x3,exam grossly non-focalEXTREMITIES: normalASSESSMENT/PLAN:1) Health maintenance:Pap/HPV up to date.Mammogram orderedMammogram up to dateNutrition, exercise and routine health maintenance exams reviewed.Calcium/Vitamin D supplementation information provided.Colon cancer screening: declines colonoscopy- screening with PCPBMD: up to date2) Follow up one year or sooner as neededPedro Novoa MD Normal [facility] CNCOon 02-21-2017 CNCO HNO ID: [id number] thor: Mammography CoordinatorService: (none)Author Type: PhysicianType: LetterFiled: 02/24/2017 11:33 PMNote Text:February 21, 2017 PID: [id number]. [id number] [place] [id number] Ms. Bashir,We are pleased to inform you that the results of your recent breastimaging exam on 02/21/2017 are normal. Early detection of cancer is veryimportant. We also understand recommendations regarding breast cancerscreening are controversial. Please discuss with your primary careprovider which strategy is best for you and whether a mammogram is rightfor you.Your imaging studies and report [facility] and are available for yourcontinuing care.Thank you for allowing us to help in meeting your health care needs.Sincerely,Dr. BurdickInterpreting RadiologistWCambridge Hospital's [facility] (Normal over 40) Normal [facility] SCREENINGon 02-21-2017 [facility] SCREENING * * *Final Report* * *DATE OF EXAM: Feb 21 2017 8:40AM WOW [id number] - [facility] SCREENING / REASON: Encounter for screening mammogram for malignant neoplasm of breast * * * * Physician Interpretation * * * *RESULT: #[id number] - [facility] SCREENINGBILATERAL DIGITAL SCREENING MAMMOGRAM WITH CAD: 02/21/2017HISTORY: Screening Mammogram - patient reports NO breast symptoms /priors available for comparison.RESULT:TECHNIQ UE: The study was acquired using full field digital technology and interpreted from soft copy.Current study was also evaluated with a Computer Aided Detection (CAD).Comparison is made to exams dated: 02/21/2016 mammogram, 02/07/2015 mammogram, and 02/03/2014 mammogram - [facility].There are scattered fibroglandular elements in both breasts.No significant masses, calcifications, or other findings are seen in either breast.There has been no significant interval change.IMPRESSION: NEGATIVEThere is no mammographic evidence of malignancy.A 1 year screening mammogram is recommended.Carol Ann Burdick M.D.ls/penrad:02/21/2017 10:31:42Imaging Technologist: Silva HUMPHREY)(Mar[place]), [facility] Normal over 40Mammogram BI-RADS: 1 NegativeTranscriptionist: PenradTranscribe Date/Time: Feb 21 2017 8:04ADictated by: CAROL ANN BURDICK MDThis examination was interpreted and the report reviewed and electronically signed by: CAROL ANN BURDICK MD on Feb 21 2017 10:31AM [id number] Normal [facility] PROGRESSon 02-21-2017 Cholesterol HNO ID: [id number] thor: Peace Hernandez RtService: (none)Author Type: (none)Type: Progress NotesFiled: 02/21/2017 8:27 AMNote Text: Radiology Service Progress NotePATIENT NAME: Jaleesa BashirMRN: [id number] OF SERVICE: February 21, 2017TIME: 8:06 AMPATIENT IDENTITY VERIFICATION COMPLETED USING TWO (2) METHODS: Patientconfirmed name verbally and Date of .PATIENT GENDER DATA: Female. status: : NoBreastfeeding status: NO.PATIENT RELEVANT IMPLANT DATA REVIEWED: Not ApplicableRADIOLOGY DEPARTMENT: [facility]PER[facility] IV DATA: Not applicableSIGNED BY: Peace Hernandez RtDecember 2016 8:06 AM Normal [facility] Encounters Encounter Date Encounter Type Care Provider Facility Start: 01-04-2025 ambulatory Mason Lagunas Facility:[facility] Start: 12-15-2024 ambulatory Mason Lagunas Facility:[facility] Start: 10-07-2024 End: 10-07-[address] Mason Lagunas MD Work Phone: -Outpatient [facility] Start: 10-07-2024 End: 10-07-2024 Patient encounter procedure Dena SANTIAGO -Outpatient Bone Densitometry Work Phone: Start: 10-07-2024 End: 10-07-2024 ambulatory Mason Lagunas Facility:[facility] Start: 10-01-2024 End: 10-01-[address] Mason Lagunas MD Work Phone: -Laboratory [facility] Start: 10-01-2024 End: 10-01-[address] Mason Lagunas MD -Laboratory [facility] Start: 10-01-2024 End: 10-01-2024 ambulatory Mason Lagunas Facility:[facility] Start: 08-11-2024 End: 08-11-[address] Mason Lagunas MD Work Phone: [facility] Work Phone: Start: 08-11-2024 End: 08-11-[address] Mason Lagunas MD -Outpatient Breast Imaging Work Phone: Start: 08-11-2024 End: 08-11-2024 ambulatory Mason Lagunas Facility:[facility] Start: 02-17-2024 End: 02-17-2024 ambulatory Mason Lagunas Facility:[facility] Start: 08-14-2022 End: 08-14-2022 ambulatory [facility] Work Phone: Start: 08-14-2022 End: 08-14-2022 Patient encounter procedure [facility]-Outpatient Breast Imaging Start: 07-22-2022 End: 07-22-2022 ambulatory [facility] Work Phone: Start: 07-22-2022 End: 07-22-2022 Patient encounter procedure [facility] Start: 04-29-2022 End: 04-29-2022 ambulatory [facility] Work Phone: Start: 04-29-2022 End: 04-29-2022 Discharged Recurring [facility]-Physical Therapy Start: 09-13-2021 End: 09-13-2021 Patient encounter procedure [facility] Start: 04-02-2017 End: 04-07-2017 Ambulatory PEDRO TRINH [facility] Start: 02-21-2017 End: 02-21-2017 Ambulatory RODRICK LOVE [facility] Procedures Date Procedure Procedure Detail Performing Clinician Start: 10-07-2024 Dual energy X-ray absorptiometry Dr. Mason Lagunas MD Work Phone: Start: 08-11-2024 Screening mammography Patrick Lagunas MD Work Phone: Start: 08-14-2022 Dual energy X-ray absorptiometry Start: 08-14-2022 Screening mammography Plan of Treatment Date Care Activity Detail Author Start: 10-07-2024 Dual energy X-ray absorptiometry Dexa Bone Density Study [facility] Immunizations Immunization Date Immunization Notes Care Provider Fa monique 12-22-2017 Influenza virus vaccine [facility] Payers Date Payer Category Payer Self-pay [id number] 2021 Medicare [id number] [id number] [id number] Unknown [id number] [id number] Unknown [id number] 2.16.8 [id number] Unknown [id number] 2.16.8 [id number] Unknown [id number] 2.16.8 [id number] Unknown [id number] 2.16.8 [id number] Social History Date Type Detail Facility Tobacco smoking status NHIS Unknown if ever smoked [facility] Work Phone: Start: 1955 Sex Assigned At Female [facility] Start: 08-03-2018 Tobacco smoking status NHIS Unknown if ever smoked [facility] Start: 06-23-2018 None [facility] Start: 06-23-2018 Spouse/ Signif icant Other [facility] Start: 06-20-2013 - [facility] Start: 08-03-2018 Tobacco smoking status NHIS Never smoked tobacco (finding) [facility] Discharge summary 06-10-2022 Note Date & Type Note Facility 06-10-2022 Discharge summary Note Date/Time June 10, 2022 7:42am [facility] Physical Therapy [facility] [address] [place] [address] / REHABILITATION SERVICES DISCHARGE SUMMARY MR#: [id number] Acct: [id number] Name: JALEESA BASHIR Rep #: [id number] : 1955 66 From: Dena SHELTON T Referring Dr.: Dr. Mason Lagunas MD Status: REG RCR Insurance: [employer] PPO SELF PAY INSURANCE JALEESA BASHIR was seen in my office for initial evaluation on 04/29/22. The following Plan of Care was established for this patient: Initial Frequency: 1x/Week Initial Duration: 1 Week Patient/Client Instruction: Educate patient on: Benefits of Fitness Program Therapeutic Exercise to Include: Strength training This patient was last seen in our office . Pertinent comments regarding their Physical therapy will appear below: Patient was to perform HEP and call if questions- appropriate to be d/c from PT and return to MD as appropriate At this point I will be discontinuing this patient from physical therapy. I would be happy to see this patient again in the future if found appropriate by the physician. Thank you! CAT CelestinT Balance/Gait/Functional tests - Balance/Special Test Scores Quick DASH Score: 11.3625 <Electronically signed by Dena Kee DPT> 06/10/22 0742 CC: Dr. Mason Lagunas MD ~ ELR Signed [facility] Work Phone: Evaluation note Note Date & Type Note Facility Evaluation note No assessment information availa ble [facility] Work Phone: Reason for referral (narrative) Note Date & Type Note Facility Reason for referral (narrative) No reason for referral information available [facility] Work Phone: Summary Purpose Family History No Family History Records Found Relationship Condition Age at Onset Recorded Date/T fior father Myocardial infarction 43 mother Mitral valve prolapse Unknown Advance Directives No Advanced Directives Records Found Advance Directive Response Recorded Date/ Time Advance Directives No June 20 14 7:42pm Living Will No June 23, 2018 10:14am Power of Can Machine Operator No June 23 9 10:14am Advance Directive Response Recorded Date/ Time Advance Directives No June 20 7:42pm Chief Complaint and Reason for Visit Chief Complaint R SHOULDER CLICK/HX FROZEN. RX HERE Chief Complaint R SHOULDER CLICK/HX FROZEN. RX HERE SCREENING Chief Complaint Admit Date SCREENING August 11, 2024 2:31p m Chief Complaint Admit Date SCREENING August 11, 2024 2:31p m POST PASCUAL October 07, 2024 10:1 8am Additional Source Comments INFORMATION SOURCE (unrecogn ized section and content) DATE CREATED AUTHOR 09/08/2017 [facility] DATE CREATED AUTHOR AUTHOR'S ORGANIZ ATION 12/27/2024 [facility] Goals (unrecognized section and content) Goals may be documented in a n alternate sectionGoals may be documented in an alternate sectionGoals may be documented in an alternate sectionGoals may be documented in an alternate sectionGoals may be documented in an alternate sectionGoals may be documented in an alternate sectionGoals may be documented in an alternate sectionGoals may be documented in an alternate section Care Teams (unrecognized sec tion and content) Team Status: Active Member Role Status Dates Dr. Mason Lagunas MD Family Provider Active Dr. Mason Lagunas MD Primary Care Provider Active Team Status: Inactive Member Role Status Dates Dr. Mason Lagunas MD Primary Care Provide r, Attending Provider, Referring Provider Active Team Status: Inactive Member Role Status Dates Dr. Mason Lagunas MD Primary Care Provider, Attending Anthony brink Active Team Status: Active Member Role Status Dates Dr. Mason Lagunas MD Primary Care Provider Active Team Status: Inactive Member Role Status Dates Dr. Mason Lagunas MD Primary Care Provider Active Start: August 11, 2024 End: August 11, 2024 Dr. Mason Lagunas MD Attending Provider Active St art: August 11, 2024 End: August 11, 2024 Dr. Mason Lagunas MD Referring Provider Active St art: August 11, 2024 End: August 11, 2024 Team Status: Active Member Role/Relationship Status Dates Dr. Mason Lagunas MD Primary Care Provider Active Team Status: Inactive Member Role/Relationship Status Dates Dr. Mason Lagunas MD Primary Care Provider Active Start: August 11, 2024 End: August 11, 2024 Dr. Mason Lagunas MD Attending Provider Active St art: August 11, 2024 End: August 11, 2024 Dr. Mason Lagunas MD Referring Provider Active St art: August 11, 2024 End: August 11, 2024 Team Status: Inactive Member Role/Relationship Status Dates Dr. Mason Lagunas MD Primary Care Provider Active Start: October 01, 2024 End: October 01, 2024 Dr. Mason Lagunas MD Attending Provider Active St art: October 01, 2024 End: October 01, 2024 Dr. Mason Lagunas MD Referring Provider Active St art: October 01, 2024 End: October 01, 2024 Team Status: Active Member Role/Relationship Status Dates Dr. Mason Lagunas MD Primary Care Provider Active Start: October 07, 2024 Dena Patel NP [employer]-C Attending Provider Active S tart: October 07, 2024 Dena Patel NP [employer] MA[employer]-C Referring Provider Active S tart: October 07, 2024 Team Status: Inactive Member Role/Relationship Status Dates Dr. Mason Lagunas MD Primary Care Provider Active Start: October 07, 2024 End: October 07, 2024 Dena Patel NP STATION MASTER-C Attending Provider Active S tart: October 07, 2024 End: October 07, 2024 Dena Patel NP STATION MASTER-C Referring Provider Active S tart: October 07, 2024 End: October 07, 2024 FOR RECORDS PERTAINING TO PATIENTS WHO ARE OR HAVE BEEN ENROLLED IN A CHEMICAL DEPENDENCY/SUBSTANCEABUSE PROGRAM, SOME INFORMATION MAY BE OMITTED. This clinical summary was aggregated from multiple sources. Caution should be exercised in using it in the provision of clinical care. This summary normalizes information from multiple sources, and as a consequence, information in this document may materially change the coding, format and clinical context of patient data. In addition, data may be omitted in some cases. CLINICAL DECISIONS SHOULD BE BASED ON THE PRIMARY CLINICAL RECORDS. [facility] [facility]. provides no warranty or guarantee of the accuracy or completeness of information in this document.
== END | disposition home or self-care (01) ==
LOC: CT 17:19
PROVIDERS: PCP Family Medicine; Referring Provider Family Medicine; Visit Provider Family Medicine
DX: M25.552 Pain in left hip (principal)
CPT/HCPCS: 73701; Q9967